=== PATIENT | female | born 1965 | race Caucasian/White ===

== ENCOUNTER 2016-11-22 10:53 | Emergency (ER) | payer OTHER ==
--- NOTE | 2016-11-22 11:57 | DIAGNOSTIC IMAGING REPORT ---
PROCEDURE: XR CHEST 1 VIEW INDICATION: CHEST PAIN TECHNIQUE: Portable AP view 11:30 a.m. COMPARISON: None. FINDINGS: Lungs are clear. Heart and mediastinum are normal. Thorax is normal. IMPRESSION: 1. Negative chest.
--- NOTE | 2016-11-22 12:17 | ED NURSING NOTES ---
Clinical Report - Nurses Formerly [facility] [address] [place] [address] 11/22/2016 10:54 Patient: LEÓN ROSENTHAL TRIAGE Triage time 10:58. Acuity: LEVEL 2. Chief Complaint: CHEST PAIN. 11:04 11/22/16. Alert. No acute distress. SEPSIS SCREEN: Sepsis Screen. Negative (no infection suspected/documented). LOLY COMA SCORE: [place] Coma Scale: 15- eyes open spontaneously (4); best verbal response- oriented x 4 (5); best motor response- obeys commands (6). --11:04 William Roman R.N. 11:00 11/22/16. BP: 129/107. HR: 85. RR: 16. O2 saturation: 100% on room air. Temp: 98.4 F (oral). Pain level now 5/10. --11:04 William Roman R.N. Weight: 74.8 kg stated. Height/Length: 62 inches Per Patient. BMI: 30.2. --11:01 William Roman R.N. Medications Estradiol Oral (Tablet 1 mg), daily. Omeprazole Oral 40 mg, daily. Synthroid Oral 250mcg, daily. Tylenol prn. --11:02 William Roman R.N. Allergies Flexeril. Side-Effect Moderate (restless leg syndrome) --11:02 William Roman R.N. Medication/allergy information source: the patient. --11:04 William Roman R.N. History Arrived by private vehicle. Historian: patient. Primary physician (no pcp). ( chest pain x2 weeks, states it is worse today. States she has also had a cough for the past 2 days.). Onset. (2 weeks ago). Treatment [employer] COUNSELOR: None. PAST MEDICAL HX: Denies current . SOCIAL HX: Heavy tobacco smoker (cigarette)- less than 1 pack per day. No alcohol use or drug use. ABUSE ASSESSMENT: Abuse assessment: The patient was asked "Do you feel safe in your home?". No report of abuse. FALL RISK ASSESSMENT: Fall risk assessment completed. No fall risk identified. NUTRITIONAL RISK ASSESSMENT: The nutritional risk assessment revealed no deficiencies. FUNCTIONAL ASSESSMENT: Functional assessment: no impairments noted. LEARNING NEEDS ASSESSMENT: The learning needs assessment revealed no barriers. SKIN INTEGRITY ASSESSMENT: Skin integrity risk assessment completed. No skin integrity risk identified. --11:04 William Roman R.N. ( states cough is nonproductive). --11:04 William Roman R.N. PROBLEMS: Grave's Disease. Hypothyroidism. --11:02 William Roman R.N. ADDITIONAL SURGERIES: Hysterectomy. --11:02 William Roman R.N. Interventions ID band on patient. To treatment room. --11:04 William Roman R.N. PHYSICAL ASSESSMENT 11:04 11/22/16. Ambulatory to room. GENERAL / NEURO / PSYCH: Alert. Oriented X 4. Appears in no acute distress. HEENT: Mucous membranes are pink. RESPIRATORY: Respirations not labored. CVS: Pulses within normal limits. Capillary refill less than 2 seconds. GI / : Abdomen soft and nontender. EXTREMITIES: No lower extremity edema. SKIN: Skin is warm and dry. Normal skin turgor. --11:04 William Roman R.N. NURSING PROGRESS NOTES 11:11/22/2016 Site #1 started via IV in the right antecubital space with an 20g angiocath, with aseptic technique and good blood return; one attempt. Blood drawn: rainbow set. Labeled in the presence of the patient and sent to the lab. Saline lock flushed with 10 mL saline (by HARMAN Rincon). --11:05 William Roman R.N. 11:11/22/16. The plan of care for this patient has been created. vehicle monitor technician, pulse oximeter and NIBP monitor placed on patient. Patient gowned. Head of bed elevated. Call light placed in reach. Bed placed in lowest position. Brakes of bed on. Patient ready for evaluation- chart flagged. --11:05 William Roman R.N. EKG time: (11:06). EKG was performed by a tech and shown to the ED physician. --11:08 Leonie Vivar 11:07 11/22/2016 Aspirin PO Tablets 325 mg given. Allergies verified and confirmed 5 rights. --11:10 William Roman R.N. Patient ID band checked for patient name and birthdate: patient confirmed. Instructions provided to collect clean catch urine and patient verbalized understanding. Clean catch urine collected with return of yellow-colored clear urine; odor is normal; sample sent to lab for urinalysis and culture. Specimen labeled in the presence of the patient. --11:42 William Roman R.N. DISPOSITION / DISCHARGE 12:39 11/22/2016 Site #1 removed upon discharge. Bandage applied. --12:39 Clayton Hubbard R.N. Departure time: 12:39 Nov 22 2016. --12:39 Clayton Hubbard R.N. 12:38 11/22/16. BP: 136/82. HR: 76. RR: 18. O2 saturation: 99%. Temp: 98.3 F. --12:39 Clayton Hubbard R.N. Condition at departure: improved. No learning barriers present. Discharge instructions provided and reviewed with the patient. Reviewed warnings. Reviewed medication(s). Treatments reviewed. Reviewed referrals. Patient verbalized understanding. Written instructions provided in Turkmen. The patient was discharged by the physician. She was discharged home and accompanied by family. She left the Emergency Department ambulatory and via private vehicle. Patient driving. --12:40 Clayton Hubbard R.N. Locked/Released at 11/23/2016 8:53 by Pavithra Ozuna R.N.
--- NOTE | 2016-11-22 12:17 | ED CLINICAL REPORT ---
Clinical Report - Physicians/Mid Levels [facility] [address] [place] [address] 11/22/2016 10:54 Patient: LEÓN ROSENTHAL Time Seen: 11:00. Arrived- By private vehicle. Historian- patient. HISTORY OF PRESENT ILLNESS Chief Complaint: CHEST PAIN. It is described as pressure, burning, "pain" and well localized and it is described as located in the central chest area. No radiation. This started about 2 weeks ago and is still present. It was gradual in onset. At its maximum, severity described as 5 / 10. When seen in the E.D., severity described as 4 / 10. No nausea, vomiting or diaphoresis. She has had mild difficulty breathing on exertion. REVIEW OF SYSTEMS No fever, chills or pedal edema or edema. No calf pain or pain, chills, fever or sweats. No palpitations. She has had a moderate cough productive of scant amounts of sputum. She has had a cough and mild difficulty breathing. The patient has also had dyspnea on exertion. All systems otherwise negative, except as recorded above. PAST HISTORY PCP - none here. Problems: Grave's Disease. Hypothyroidism. Wound Check. Contusion. Total abd hysterectomy. Additional Surgeries: Hysterectomy. Medications: Estradiol Oral (Tablet 1 mg), daily. Omeprazole Oral 40 mg, daily. Synthroid Oral 250mcg, daily. Tylenol prn. Allergies: Flexeril. Side-Effect Moderate (restless leg syndrome). SOCIAL HISTORY Current every day heavy tobacco smoker (cigarette)- 1 pack per day. No alcohol use or drug use. Residence[place]. FAMILY HISTORY Diabetes in first-degree relative (mother). sister with an uncertain type of lung disease mother with renal failure. ADDITIONAL NOTES The nursing notes have been reviewed. PHYSICAL EXAM Vital Signs: 11/22/2016 11:00 BP: 129/107. HR: 85. RR: 16. O2 saturation: 100%. Temp: 98.4 F. Have been reviewed. Appearance: Alert. No acute distress. Eyes: Pupils equal, round and reactive to light. ENT: Pharynx normal. Neck: Normal inspection. Neck supple. No JVD. CVS: Normal heart rate and rhythm. Heart sounds normal. Respiratory: No respiratory distress. Abdomen: Soft and nontender. Bowel sounds normal. No organomegaly. No mass. Back: Normal external inspection. Skin: Skin warm and dry. Normal skin color. Normal skin turgor. Extremities: Extremities exhibit normal ROM. No calf tenderness. No lower extremity edema. LABS, X-RAYS, AND EKG EKG: No acute process. Rate: 81. Prior EKG unavailable. The study has been independently viewed by me. Chest X-ray: No acute disease. The X-rays were interpreted by the radiologist and contemporaneously by me. Laboratory Tests: UA-Culture if indicated: (TIA: 11/22/2016 11:35) ( MsgRcvd 11/22/2016 11:57) Final results Test Result Flag Units (Reference) URINE COLOR STRAW URINE APPEARANCE CLEAR URINE GLUCOSE NEGATIVE (NEGATIVE) URINE BILIRUBIN NEGATIVE (NEGATIVE) URINE KETONE NEGATIVE (NEGATIVE) URINE SPECIFIC GRAVITY <= 1.005 L (1.010-1.030) URINE PH 6.0 (5.0-8.0) URINE PROTEIN NEGATIVE (NEGATIVE) URINE UROBILINOGEN 0.2 EU/dL (0.2-1.0) URINE NITRITE NEGATIVE (NEGATIVE) URINE BLOOD NEGATIVE (NEGATIVE) URINE LEUK ESTERASE NEGATIVE (NEGATIVE) URINE RBC NONE SEEN rbc/hpf (0-1) URINE WBC 0-1 wbc/hpf (0-1) URINE EPITHELIAL CELLS 3-5 EPI/hpf (0-5) URINE BACTERIA TRACE (<1+) (NONE SEEN) URINE COMMENT CULT NOT INDICATED URINE CULTURES ARE SET-UP BASED ON THE FOLLOWING CRITERIA:POSITIVE NITRITEPOSITIVE LEUKOCYTE ESTERASEGREATER THAN 10 WHITE BLOOD CELLSMODERATE (2+) OR GREATER BACTERIA CBC w Diff: (TIA: 11/22/2016 11:04) ( Mscvd 11/22/2016 11:13) Final results Test Result Flag Units (Reference) WHITE BLOOD COUNT 7.4 K/uL (4.5-11.5) RED BLOOD COUNT 4.52 M/uL (4.00-5.20) HEMOGLOBIN 13.9 gm/dL (12.0-16.0) HEMATOCRIT 42.4 % (36.0-46.0) MEAN CELL VOLUME 94 fL (80-100) MEAN CORPUSCULAR HGB 31 pg (26-34) MEAN CORPUSCULAR HGB CONC 33 g/dL (31-37) RED CELL DISTRIBUTION WIDTH 13.3 % (11.6-14.8) PLATELET COUNT 311 K/uL (150-400) NEUTROPHIL % 67.2 % (50-75) LYMPH % 24.5 L % (25-40) MONO % 6.7 % (3-14) EOSINOPHIL % 1.2 % (0-4) BASOPHIL % 0.4 % (0-2) PT with INR: (TIA: 11/22/2016 11:04) ( [facility] 11[facility]30) Final results Test Result Flag Units (Reference) INR 0.9 (0.8-1.2) Low Intensity Therapy: INR 1.5-2.0 PT range 18.5-23.1Mod.Intensity Therapy: INR 2.0-3.0 PT range 23.1-31.5High Intensity Therapy: INR 2.5-3.5 PT range 27.4-35.5High Intensity Therapy 2: INR 3.0-4.0 PT range 31.5-39.3 APTT 32 SECONDS (24-34) D-DIMER QUANTITATIVE < 0.27 L ug/mLFEU (0.27-0.52) The primary value of this quantitative assay relates toits negative predictive value (i.e. exclusion) of pulmonaryembolism/deep vein thrombosis/DIC.Elevated levels of d-dimer may also occur with:, age, cancer, inflammation, liver disease,post-op, infection, hematoma, coronary disease, peripheralarteriopathy, bleeding disorders and thrombolytic treatment.Results should be correlated with other clinical andradiological data.Testing Methodology: Latex Immunoassay CMP: (TIA: 11/22/2016 11:04) ( MsgRcvd 11/22/2016 11:38) Final results Test Result Flag Units (Reference) GLUCOSE 108 mg/dL (70-110) BUN 19 H mg/dL (7-18) CREATININE 0.9 mg/dL (0.6-1.3) Estimated GFR >60 mL/min Estimated GFR- >60 mL/min Note: Persistent reduction over 3 months in eGFR<60 mL/min/1.73 m2 defines CKD. Patients with eGFR values>=60 mL/min/1.73 m2 may also have CKD if evidence ofpersistent proteinuria. Additional information may be foundat www.kidney.org. SODIUM 139 mmol/L (136-145) POTASSIUM 3.9 mmol/L (3.5-5.1) CHLORIDE 102 mmol/L (98-107) CARBON DIOXIDE 26 mmol/L (21-32) CALCIUM 9.0 mg/dL (8.5-10.1) TOTAL PROTEIN 8.4 H g/dL (6.4-8.2) ALBUMIN 3.9 g/dL (3.3-5.0) BILIRUBIN, TOTAL 0.3 mg/dL (0.0-1.0) ALKALINE PHOSPHATASE 89 U/L (46-116) AST (SGOT) 15 U/L (15-37) ALT (SGPT) 21 U/L (12-78) LIPASE 80 U/L (73-393) AMYLASE 64 U/L (25-115) CPK 77 U/L (24-260) TROPONIN I <0.05 L ng/mL (0.00-1.5) TROPONIN REFERENCE RANGE:<0.1 NEGATIVE0.1-1.5 INDETERMINANT>1.5 POSITIVE . PROGRESS AND PROCEDURES Course of Care: Patient is stable. Patient/family counseled. Old medical records reviewed. Disposition: Discharged. Condition: stable. CLINICAL IMPRESSION Acute bronchitis. Pleurisy. INSTRUCTIONS No driving or operating machinery while taking medication. Do not smoke- benefits of smoking cessation discussed (>3 -10 minutes). Seek medical help to quit smoking. Warnings: Further evaluation is necessary. GENERAL WARNINGS: Return or contact your physician immediately if your condition worsens or changes unexpectedly, if not improving as expected, or if other problems arise. Prescription Medications: Zithromax 250 mg tablets: take 2 orally today, followed by 1 daily for the next 4 days. No refills. Substitution is permissible. Ultram 50 mg: take 1-2 orally every 6 hours as needed for pain. Dispense ten (10). No refills. Substitution is permissible. Understanding of the discharge instructions verbalized by patient. Follow-up with: [facility], , , [address], , [place], [id number] Follow up. Call for the next available appointment. (Electronically signed by Anurag Mccarty MD 11/22/2016 15:29)
--- NOTE | 2016-11-22 12:17 | ED CLINICAL REPORT ---
Clinical Report - Physicians/Mid Levels [facility] [address] [place] [address] 11/22/2016 10:54 Patient: LEÓN ROSENTHAL Time Seen: 11:00. Arrived- By private vehicle. Historian- patient. HISTORY OF PRESENT ILLNESS Chief Complaint: CHEST PAIN. It is described as pressure, burning, "pain" and well localized and it is described as located in the central chest area. No radiation. This started about 2 weeks ago and is still present. It was gradual in onset. At its maximum, severity described as 5 / 10. When seen in the E.D., severity described as 4 / 10. No nausea, vomiting or diaphoresis. She has had mild difficulty breathing on exertion. REVIEW OF SYSTEMS No fever, chills or pedal edema or edema. No calf pain or pain, chills, fever or sweats. No palpitations. She has had a moderate cough productive of scant amounts of sputum. She has had a cough and mild difficulty breathing. The patient has also had dyspnea on exertion. All systems otherwise negative, except as recorded above. PAST HISTORY PCP - none here. Problems: Grave's Disease. Hypothyroidism. Wound Check. Contusion. Total abd hysterectomy. Additional Surgeries: Hysterectomy. Medications: Estradiol Oral (Tablet 1 mg), daily. Omeprazole Oral 40 mg, daily. Synthroid Oral 250mcg, daily. Tylenol prn. Allergies: Flexeril. Side-Effect Moderate (restless leg syndrome). SOCIAL HISTORY Current every day heavy tobacco smoker (cigarette)- 1 pack per day. No alcohol use or drug use. Residence[place]. FAMILY HISTORY Diabetes in first-degree relative (mother). sister with an uncertain type of lung disease mother with renal failure. ADDITIONAL NOTES The nursing notes have been reviewed. PHYSICAL EXAM Vital Signs: 11/22/2016 11:00 BP: 129/107. HR: 85. RR: 16. O2 saturation: 100%. Temp: 98.4 F. Have been reviewed. Appearance: Alert. No acute distress. Eyes: Pupils equal, round and reactive to light. ENT: Pharynx normal. Neck: Normal inspection. Neck supple. No JVD. CVS: Normal heart rate and rhythm. Heart sounds normal. Respiratory: No respiratory distress. Abdomen: Soft and nontender. Bowel sounds normal. No organomegaly. No mass. Back: Normal external inspection. Skin: Skin warm and dry. Normal skin color. Normal skin turgor. Extremities: Extremities exhibit normal ROM. No calf tenderness. No lower extremity edema. LABS, X-RAYS, AND EKG EKG: No acute process. Rate: 81. Prior EKG unavailable. The study has been independently viewed by me. Chest X-ray: No acute disease. The X-rays were interpreted by the radiologist and contemporaneously by me. Laboratory Tests: UA-Culture if indicated: (TIA: 11/22/2016 11:35) ( MsgRcvd 11/22/2016 11:57) Final results Test Result Flag Units (Reference) URINE COLOR STRAW URINE APPEARANCE CLEAR URINE GLUCOSE NEGATIVE (NEGATIVE) URINE BILIRUBIN NEGATIVE (NEGATIVE) URINE KETONE NEGATIVE (NEGATIVE) URINE SPECIFIC GRAVITY <= 1.005 L (1.010-1.030) URINE PH 6.0 (5.0-8.0) URINE PROTEIN NEGATIVE (NEGATIVE) URINE UROBILINOGEN 0.2 EU/dL (0.2-1.0) URINE NITRITE NEGATIVE (NEGATIVE) URINE BLOOD NEGATIVE (NEGATIVE) URINE LEUK ESTERASE NEGATIVE (NEGATIVE) URINE RBC NONE SEEN rbc/hpf (0-1) URINE WBC 0-1 wbc/hpf (0-1) URINE EPITHELIAL CELLS 3-5 EPI/hpf (0-5) URINE BACTERIA TRACE (<1+) (NONE SEEN) URINE COMMENT CULT NOT INDICATED URINE CULTURES ARE SET-UP BASED ON THE FOLLOWING CRITERIA:POSITIVE NITRITEPOSITIVE LEUKOCYTE ESTERASEGREATER THAN 10 WHITE BLOOD CELLSMODERATE (2+) OR GREATER BACTERIA CBC w Diff: (TIA: 11/22/2016 11:04) ( Mscvd 11/22/2016 11:13) Final results Test Result Flag Units (Reference) WHITE BLOOD COUNT 7.4 K/uL (4.5-11.5) RED BLOOD COUNT 4.52 M/uL (4.00-5.20) HEMOGLOBIN 13.9 gm/dL (12.0-16.0) HEMATOCRIT 42.4 % (36.0-46.0) MEAN CELL VOLUME 94 fL (80-100) MEAN CORPUSCULAR HGB 31 pg (26-34) MEAN CORPUSCULAR HGB CONC 33 g/dL (31-37) RED CELL DISTRIBUTION WIDTH 13.3 % (11.6-14.8) PLATELET COUNT 311 K/uL (150-400) NEUTROPHIL % 67.2 % (50-75) LYMPH % 24.5 L % (25-40) MONO % 6.7 % (3-14) EOSINOPHIL % 1.2 % (0-4) BASOPHIL % 0.4 % (0-2) PT with INR: (TIA: 11/22/2016 11:04) ( [facility] 11/22/2016 11[facility]30) Final results Test Result Flag Units (Reference) INR 0.9 (0.8-1.2) Low Intensity Therapy: INR 1.5-2.0 PT range 18.5-23.1Mod.Intensity Therapy: INR 2.0-3.0 PT range 23.1-31.5High Intensity Therapy: INR 2.5-3.5 PT range 27.4-35.5High Intensity Therapy 2: INR 3.0-4.0 PT range 31.5-39.3 APTT 32 SECONDS (24-34) D-DIMER QUANTITATIVE < 0.27 L ug/mLFEU (0.27-0.52) The primary value of this quantitative assay relates toits negative predictive value (i.e. exclusion) of pulmonaryembolism/deep vein thrombosis/DIC.Elevated levels of d-dimer may also occur with:, age, cancer, inflammation, liver disease,post-op, infection, hematoma, coronary disease, peripheralarteriopathy, bleeding disorders and thrombolytic treatment.Results should be correlated with other clinical andradiological data.Testing Methodology: Latex Immunoassay CMP: (TIA: 11/22/2016 11:04) ( MsgRcvd 11/22/2016 11:38) Final results Test Result Flag Units (Reference) GLUCOSE 108 mg/dL (70-110) BUN 19 H mg/dL (7-18) CREATININE 0.9 mg/dL (0.6-1.3) Estimated GFR >60 mL/min Estimated GFR- >60 mL/min Note: Persistent reduction over 3 months in eGFR<60 mL/min/1.73 m2 defines CKD. Patients with eGFR values>=60 mL/min/1.73 m2 may also have CKD if evidence ofpersistent proteinuria. Additional information may be foundat www.kidney.org. SODIUM 139 mmol/L (136-145) POTASSIUM 3.9 mmol/L (3.5-5.1) CHLORIDE 102 mmol/L (98-107) CARBON DIOXIDE 26 mmol/L (21-32) CALCIUM 9.0 mg/dL (8.5-10.1) TOTAL PROTEIN 8.4 H g/dL (6.4-8.2) ALBUMIN 3.9 g/dL (3.3-5.0) BILIRUBIN, TOTAL 0.3 mg/dL (0.0-1.0) ALKALINE PHOSPHATASE 89 U/L (46-116) AST (SGOT) 15 U/L (15-37) ALT (SGPT) 21 U/L (12-78) LIPASE 80 U/L (73-393) AMYLASE 64 U/L (25-115) CPK 77 U/L (24-260) TROPONIN I <0.05 L ng/mL (0.00-1.5) TROPONIN REFERENCE RANGE:<0.1 NEGATIVE0.1-1.5 INDETERMINANT>1.5 POSITIVE . PROGRESS AND PROCEDURES Course of Care: Patient is stable. Patient/family counseled. Old medical records reviewed. Disposition: Discharged. Condition: stable. CLINICAL IMPRESSION Acute bronchitis. Pleurisy. INSTRUCTIONS No driving or operating machinery while taking medication. Do not smoke- benefits of smoking cessation discussed (>3 -10 minutes). Seek medical help to quit smoking. Warnings: Further evaluation is necessary. GENERAL WARNINGS: Return or contact your physician immediately if your condition worsens or changes unexpectedly, if not improving as expected, or if other problems arise. Prescription Medications: Zithromax 250 mg tablets: take 2 orally today, followed by 1 daily for the next 4 days. No refills. Substitution is permissible. Ultram 50 mg: take 1-2 orally every 6 hours as needed for pain. Dispense ten (10). No refills. Substitution is permissible. Understanding of the discharge instructions verbalized by patient. Follow-up with: [facility], , , [address], , [place], [id number] Follow up. Call for the next available appointment. (Electronically signed by Anurag Mccarty MD 11/22/2016 15:29)
--- NOTE | 2016-11-22 12:17 | ED ORDER SUMMARY ---
..... Patient: LEÓN ROSENTHAL OrderSheet [facility]ly [facility] VisitID: [id number] [address] [place] [address] 51y, F Registration Date/Time: 11/22/2016 ORDER SHEET Weight: 74.8 kg (stated) Allergies: Flexeril GENERAL ORDERS: Sld Teacher (Continuous) (11:11/22/2016 Berhane TY) (11:05 KWilliams R.N.) Chest 1V Urgent (11:11/22/2016 Berhane TY) (Ack 11:10 Sobia) (11:32 KWilliams R.N.) CBC w Diff Urgent (11:11/22/2016 Berhane TY) (11:10 KWilliams R.N.) (Ack 11:10 Sobia) CMP Urgent (11:11/22/2016 Berhane TY) (11:10 KWilliams R.N.) (Ack 11:10 Sobia) UA-Culture if indicated Urgent (11:11/22/2016 Berhane TY) (Ack 11:10 Sobia) (11:38 KWilliams R.N.) PT with INR Urgent (11:11/22/2016 Berhane TY) (11:10 KWilliams R.N.) (Ack 11:10 Sobia) PTT Urgent (11:11/22/2016 Berhane TY) (11:10 KWilliams R.N.) (Ack 11:10 Sobia) Amylase Urgent (11:11/22/2016 Berhane TY) (11:10 KWilliams R.N.) (Ack 11:10 Sobia) Lipase Urgent (11:11/22/2016 Berhane TY) (11:10 CHOLOilliams R.N.) (Ack 11:10 Sobia) CPK Urgent (11:11/22/2016 Berhane TY) (11:10 KWilliams R.N.) (Ack 11:10 Sobia) Troponin-I Urgent (11:11/22/2016 Berhane TY) (11:10 KWilliams R.N.) (Ack 11:10 Sobia) D-Dimer Urgent (11:11/22/2016 Berhane TY) (11:10 Marie R.N.) (Ack 11:10 Sobia) Oxygen (2 L/min) (NC) (11:11/22/2016 Berhane TY) (11:05 Marie R.N.) Pulse oximeter (11:11/22/2016 Berhane TY) (11:10 Marie R.N.) EKG - ER Stat (11:11/22/2016 Berhane TY) (11:07 Sobia) (11:10 Marie R.N.) MEDICATION ORDERS: Aspirin PO 325 mg (NOW) (11:11/22/2016 Berhane TY) (11:10 Marie R.N.) IV FLUIDS: IV Saline Lock (11:11/22/2016 Berhane TY) (11:05 Marie R.N.) ORDER SHEET NOTES: [Electronically signed by Anurag Mccarty MD (15:29 11/22/2016)] [Electronically signed by Pavithra Ozuna R.N. (08:53 11/23/2016)] [Electronically locked/signed by Pavithra Ozuna R.N. (08:53 11/23/2016)]
--- NOTE | 2016-11-22 12:17 | ED ORDER SUMMARY ---
..... Patient: LEÓN ROSENTHAL OrderSheet [facility] VisitID: [id number] [address] [place] [address] 51y, F Registration Date/Time: 11/22/2016 ORDER SHEET Weight: 74.8 kg (stated) Allergies: Flexeril GENERAL ORDERS: Administrative Assistant Front Desk (Continuous) (11:11/22/2016 Berhane TY) (11:05 KWilliams R.N.) Chest 1V Urgent (11:11/22/2016 Berhane TY) (Ack 11:10 Sobia) (11:32 KWilliams R.N.) CBC w Diff Urgent (11:11/22/2016 Berhane TY) (11:10 KWilliams R.N.) (Ack 11:10 Sobia) CMP Urgent (11:11/22/2016 Berhane YT) (11:10 KWilliams R.N.) (Ack 11:10 Sobia) UA-Culture if indicated Urgent (11:11/22/2016 Berhane TY) (Ack 11:10 Sobia) (11:38 KWilliams R.N.) PT with INR Urgent (11:11/22/2016 Berhane TY) (11:10 KWilliams R.N.) (Ack 11:10 Sobia) PTT Urgent (11:11/22/2016 Berhane TY) (11:10 KWilliams R.N.) (Ack 11:10 Sobia) Amylase Urgent (11:11/22/2016 Berhane TY) (11:10 KWilliams R.N.) (Ack 11:10 Sobia) Lipase Urgent (11:11/22/2016 Berhane TY) (11:10 CHOLOilliams R.N.) (Ack 11:10 Sobia) CPK Urgent (11:11/22/2016 Berhane TY) (11:10 KWilliams R.N.) (Ack 11:10 Sobia) Troponin-I Urgent (11:11/22/2016 Berhane TY) (11:10 KWilliams R.N.) (Ack 11:10 Sobia) D-Dimer Urgent (11:11/22/2016 Berhane TY) (11:10 Marie R.N.) (Ack 11:10 Sobia) Oxygen (2 L/min) (NC) (11:11/22/2016 Berhane TY) (11:05 Marie R.N.) Pulse oximeter (11:11/22/2016 Berhane TY) (11:10 Marie R.N.) EKG - ER Stat (11:11/22/2016 Berhane TY) (11:07 Sobia) (11:10 Marie R.N.) MEDICATION ORDERS: Aspirin PO 325 mg (NOW) (11:11/22/2016 Berhane TY) (11:10 Marie R.N.) IV FLUIDS: IV Saline Lock (11:11/22/2016 Berhane TY) (11:05 Marie R.N.) ORDER SHEET NOTES: [Electronically signed by Anurag Mccarty MD (15:29 11/22/2016)] [Electronically signed by Pavithra Ozuna R.N. (08:53 11/23/2016)] [Electronically locked/signed by Pavithra Ozuna R.N. (08:53 11/23/2016)]
--- NOTE | 2016-11-22 12:17 | ED NURSING NOTES ---
Clinical Report - Nurses [facility] [address] [address] 11/22/2016 10:54 Patient: LEÓN ROSENTHAL TRIAGE Triage time 10:58. Acuity: LEVEL 2. Chief Complaint: CHEST PAIN. 11:04 11/22/16. Alert. No acute distress. SEPSIS SCREEN: Sepsis Screen. Negative (no infection suspected/documented). LOLY COMA SCORE: [place] Coma Scale: 15- eyes open spontaneously (4); best verbal response- oriented x 4 (5); best motor response- obeys commands (6). --11:04 William Roman R.N. 11:00 11/22/16. BP: 129/107. HR: 85. RR: 16. O2 saturation: 100% on room air. Temp: 98.4 F (oral). Pain level now 5/10. --11:04 William Roman R.N. Weight: 74.8 kg stated. Height/Length: 62 inches Per Patient. BMI: 30.2. --11:01 William Roman R.N. Medications Estradiol Oral (Tablet 1 mg), daily. Omeprazole Oral 40 mg, daily. Synthroid Oral 250mcg, daily. Tylenol prn. --11:02 William Roman R.N. Allergies Flexeril. Side-Effect Moderate (restless leg syndrome) --11:02 William Roman R.N. Medication/allergy information source: the patient. --11:04 William Roman R.N. History Arrived by private vehicle. Historian: patient. Primary physician (no pcp). ( chest pain x2 weeks, states it is worse today. States she has also had a cough for the past 2 days.). Onset. (2 weeks ago). Treatment H[employer] ASSISTANT PRINCIPAL: None. PAST MEDICAL HX: Denies current . SOCIAL HX: Heavy tobacco smoker (cigarette)- less than 1 pack per day. No alcohol use or drug use. ABUSE ASSESSMENT: Abuse assessment: The patient was asked "Do you feel safe in your home?". No report of abuse. FALL RISK ASSESSMENT: Fall risk assessment completed. No fall risk identified. NUTRITIONAL RISK ASSESSMENT: The nutritional risk assessment revealed no deficiencies. FUNCTIONAL ASSESSMENT: Functional assessment: no impairments noted. LEARNING NEEDS ASSESSMENT: The learning needs assessment revealed no barriers. SKIN INTEGRITY ASSESSMENT: Skin integrity risk assessment completed. No skin integrity risk identified. --11:04 William Roman R.N. ( states cough is nonproductive). --11:04 William Roman R.N. PROBLEMS: Grave's Disease. Hypothyroidism. --11:02 William Roman R.N. ADDITIONAL SURGERIES: Hysterectomy. --11:02 William Roman R.N. Interventions ID band on patient. To treatment room. --11:04 William Roman R.N. PHYSICAL ASSESSMENT 11:04 11/22/16. Ambulatory to room. GENERAL / NEURO / PSYCH: Alert. Oriented X 4. Appears in no acute distress. HEENT: Mucous membranes are pink. RESPIRATORY: Respirations not labored. CVS: Pulses within normal limits. Capillary refill less than 2 seconds. GI / : Abdomen soft and nontender. EXTREMITIES: No lower extremity edema. SKIN: Skin is warm and dry. Normal skin turgor. --11:04 William Roman R.N. NURSING PROGRESS NOTES 11:11/22/2016 Site #1 started via IV in the right antecubital space with an 20g angiocath, with aseptic technique and good blood return; one attempt. Blood drawn: rainbow set. Labeled in the presence of the patient and sent to the lab. Saline lock flushed with 10 mL saline (by HARMAN Rincon). --11:05 William Roman R.N. 11:11/22/16. The plan of care for this patient has been created. monitoring analyst, pulse oximeter and NIBP monitor placed on patient. Patient gowned. Head of bed elevated. Call light placed in reach. Bed placed in lowest position. Brakes of bed on. Patient ready for evaluation- chart flagged. --11:05 William Roman R.N. EKG time: (11:06). EKG was performed by a tech and shown to the ED physician. --11:08 Leonie Vivar 11:07 11/22/2016 Aspirin PO Tablets 325 mg given. Allergies verified and confirmed 5 rights. --11:10 William Roman R.N. Patient ID band checked for patient name and birthdate: patient confirmed. Instructions provided to collect clean catch urine and patient verbalized understanding. Clean catch urine collected with return of yellow-colored clear urine; odor is normal; sample sent to lab for urinalysis and culture. Specimen labeled in the presence of the patient. --11:42 William Roman R.N. DISPOSITION / DISCHARGE 12:39 11/22/2016 Site #1 removed upon discharge. Bandage applied. --12:39 Clayton Hubbard R.N. Departure time: 12:39 Nov 22 2016. --12:39 Clayton Hubbard R.N. 12:38 11/22/16. BP: 136/82. HR: 76. RR: 18. O2 saturation: 99%. Temp: 98.3 F. --12:39 Clayton Hubbard R.N. Condition at departure: improved. No learning barriers present. Discharge instructions provided and reviewed with the patient. Reviewed warnings. Reviewed medication(s). Treatments reviewed. Reviewed referrals. Patient verbalized understanding. Written instructions provided in Turkmen. The patient was discharged by the physician. She was discharged home and accompanied by family. She left the Emergency Department ambulatory and via private vehicle. Patient driving. --12:40 Clayton Hubbard R.N. Locked/Released at 11/23/2016 8:53 by Pavithra Ozuna R.N.
--- NOTE | 2016-11-23 08:53 | ED MED RECONCILIATION SUMMARY ---
Patient: LEÓN ROSENTHAL Medication Reconciliation Report [facility] VisitID: [id number] [address] [place] [address] 51y, F Registration Date/Time: 11/22/2016 Weight: 74.8 kg Height/Length: 62 in. BMI: 30.2 ALLERGIES: Flexeril The patient's Home Medications are listed below: THE FOLLOWING MEDICATIONS NEED TO BE RECONCILED: Estradiol Oral (1 mg), daily Omeprazole Oral 40 mg, daily Synthroid Oral 250mcg, daily Tylenol prn The source(s) of the original Home Medication information: patient The following Medications were given to the patient in the Emergency Department: Aspirin [PO] PO 325 mg, administered: 11/22/2016 11:07:00 AM The following Medications were prescribed to the patient: Zithromax 250 mg tablets: take 2 orally today, followed by 1 daily for the next 4 days. No refills. Substitution is permissible. -- Anurag Mccarty MD Ultram 50 mg: take 1-2 orally every 6 hours as needed for pain. Dispense ten (10). No refills. Substitution is permissible. -- Anurag Mccarty MD
--- NOTE | 2016-11-23 08:53 | ED MAR SUMMARY ---
..... Medication Administration Record [facility] [address] [address] Patient: LEÓN ROSENTHAL Visit ID: [id number] 51y, F Weight: 74.8 kg Height/Length: 62 in BMI: 30.2 ALLERGIES: Flexeril Given 11:07 11/22/2016 William Roman R.N. Medication Administered: ASPIRIN [PO], Dose: 325 mg Tablets PO. Medication Ordered: Aspirin PO 325 mg (NOW).
--- NOTE | 2016-11-23 08:53 | ED MAR SUMMARY ---
..... Medication Administration Record [facility] [address] [place] [address] Patient: LEÓN ROSENTHAL Visit ID: [id number] 51y, F Weight: 74.8 kg Height/Length: 62 in BMI: 30.2 ALLERGIES: Flexeril Given 11:07 11/22/2016 William Roman R.N. Medication Administered: ASPIRIN [PO], Dose: 325 mg Tablets PO. Medication Ordered: Aspirin PO 325 mg (NOW).
--- NOTE | 2016-11-23 08:53 | ED DISCHARGE INSTRUCTIONS ---
Patient: LEÓN ROSENTHAL General Instructions [facility] VisitID: [id number] [address] [place] [address] 51y, F Registration Date/Time: 11/22/2016 Acute bronchitis. Pleurisy. INSTRUCTIONS No driving or operating machinery while taking medication. Do not smoke- benefits of smoking cessation discussed (>3 -10 minutes). Seek medical help to quit smoking. Warnings: Further evaluation is necessary. GENERAL WARNINGS: Return or contact your physician immediately if your condition worsens or changes unexpectedly, if not improving as expected, or if other problems arise. Prescription Medications: Zithromax 250 mg tablets: take 2 orally today, followed by 1 daily for the next 4 days. No refills. Substitution is permissible. Ultram 50 mg: take 1-2 orally every 6 hours as needed for pain. Dispense ten (10). No refills. Substitution is permissible. Understanding of the discharge instructions verbalized by patient. Follow-up with: [facility], , , [address], [facility], [id number] Follow up. Call for the next available appointment. ADDITIONAL INFORMATION Bronchitis (Adult: Abx Tx) BRONCHITIS is an infection of the air passages (bronchial tubes). It often occurs during the common cold. Symptoms include cough with mucus (phlegm) and low-grade fever. Bronchitis usually lasts 7-14 days. Mild cases can be treated with simple home remedies. More severe infection is treated with an antibiotic. Home Care: If symptoms are severe, rest at home for the first 2-3 days. When you resume activity, don't let yourself get too tired. Do not smoke. Avoid being exposed to the smoke of others. You may use acetaminophen (Tylenol) or ibuprofen (Motrin, Advil) to control fever or pain, unless another medicine was prescribed for this. [NOTE: If you have chronic liver or kidney disease or ever had a stomach ulcer or GI bleeding, talk with your doctor before using these medicines.] Your appetite may be poor, so a light diet is fine. Avoid dehydration by drinking 6-8 glasses of fluids per day (water, soft, drinks, juices, tea, soup, etc.). Extra fluids will help loosen secretions in the lungs. Hxsb-yap-scyopkr cough medicines that containdextromethorphan(such as Robitussin DM) and decongestants (Actifed or Sudafed) may help relieve cough and congestion. [NOTE: Do not use decongestants if you have high blood pressure.] Finish all antibiotic medicine, even if you are feeling better after only a few days. Follow Up with your doctor or as directed if you dont start to feel better after three days. [NOTE: If you are age 65 or older, or if you have chronic asthma or COPD, we recommend a PNEUMOCOCCAL VACCINATION every five years and a yearly INFLUENZAVACCINATION (FLU-SHOT) every . Ask your doctor about this. If you had an X-ray, a radiologist will review it. You will be notified of any new findings that may affect your care.] Get Prompt Medical Attention if any of the following occur: Fever over 100.4F (38.0C) for more than three days Trouble breathing, wheezing or pain with breathing Coughing up blood or increased amounts of colored sputum Weakness, drowsiness, headache, facial pain, ear pain or a stiff neck Pleurisy If you have pleurisy, the lining around your lungs is inflamed. It is most often due to a viral infection or pneumonia. It usually lasts for 1014 days. It may cause sharp pain with breathing, coughing, sneezing and movement. Antibiotics are usually not prescribed for this condition unless pneumonia is also present. Home care The following will help you care for your condition at home: If symptoms are severe, rest at home for the first 23 days. Avoid being exposed to cigarette smoke (yours or that of others). You may use acetaminophen or ibuprofen to control pain, unless another pain medicine was prescribed. If you have chronic liver or kidney disease or ever had a stomach ulcer or GI bleeding, talk with your doctor before using these medicines. Follow-up care Follow up with your doctor or as advised if you do not improve over the next week. When to seek medical care Get prompt medical attention if any of the following occur: Increasing shortness of breath Increase in chest pain, or pain spreads to the neck, arm or back Fever over 100.4F (38.0C) for more than three days Coughing up lots of colored sputum (mucus) or blood Redness, pain or swelling of the leg How To Quit Smoking Smoking is one of the hardest habits to break. About half of all those who have ever smoked have been able to quit, and most of those (about 70%) who still smoke want to quit. Here are some of the best ways to stop smoking. Keep Trying: It takes most smokers about 8 tries before they are finally able to fully quit. So, the more often you try and fail, the better your chance of quitting the next time! So, don't give up! Go Cold [place]: Most ex-smokers quit cold turkey. Trying to cut back gradually doesn't seem to work as well, perhaps because it continues the smoking habit. Also, it is possible to fool yourself by inhaling more while smoking fewer cigarettes. This results in the same amount of nicotine in your body! Get Support: Support programs can make an important difference, especially for the heavy smoker. These groups offer lectures, methods to change your behavior and peer support. Call the free national Quitline for more information. 132-VLNJ-PYV (074-779-6067). Low-cost or free programs are offered by many hospitals, local chapters of the [employer] [employer] (044-727-5750) and the [employer] (854-503-4307). Support at home is important too. Non-smokers can help by offering praise and encouragement. If the smoker fails to quit, encourage them to try again! Bfxh-Yky-Uliqdkv Medicines: For those who can't quit on their own, Nicotine Replacement Therapy (NRT) may make quitting much easier. Certain aids such as the nicotine patch, gum and lozenge are available without a prescription. However, it is best to use these under the guidance of your doctor. The skin patch provides a steady supply of nicotine to the body. Nicotine gum and lozenge gives temporary bursts of low levels of nicotine. Both methods take the edge off the craving for cigarettes. WARNING: If you feel symptoms of nicotine overdose, such as nausea, vomiting, dizziness, weakness, or fast heartbeat, stop using these and see your doctor. Prescription Medicines: After evaluating your smoking patterns and prior attempts at quitting, your doctor may offer a prescription medicine such as bupropion (Zyban, Wellbutrin), varenicline (Chantix, Champix), a niocotine inhaler or nasal spray. Each has its unique advantage and side effects which your doctor can review with you. Health Benefits Of Quitting: The benefits of quitting start right away and keep improving the longer you go without smokin minutes: blood pressure and pulse return to normal 8 hours: oxygen levels return to normal 2 days: ability to smell and taste begins to improve as damaged nerves start to regrow 2-3 weeks: circulation and lung function improves 1-9 months: decreased cough, congestion and shortness of breath; less tired 1 year: risk of heart attack decreases by half 5 years: risk of lung cancer decreases by half; risk of stroke becomes the same as a non-smoker For information about how to quit smoking, visit the following links: National Cancer [place] , Clearing the Air, Quit Smoking Today - an online booklet. http://www.smokefree.gov/pubs/clearing_the_air.pdf Smokefree.gov http://smokefree.gov/ QuitNet http://www.WorkMeInnet.com/ Azithromycin Oral tablet What is this medicine? AZITHROMYCIN (az ith grazyna MYE sin) is a macrolide antibiotic. It is used to treat or prevent certain kinds of bacterial infections. It will not work for colds, flu, or other viral infections. How should I use this medicine? Take this medicine by mouth with a full glass of water. Follow the directions on the prescription label. The tablets can be taken with food or on an empty stomach. If the medicine upsets your stomach, take it with food. Take your medicine at regular intervals. Do not take your medicine more often than directed. Take all of your medicine as directed even if you think your are better. Do not skip doses or stop your medicine early. Talk to your verifier operator regarding the use of this medicine in children. Special care may be needed. What side effects may I notice from receiving this medicine? Side effects that you should report to your doctor or health home care nurse as soon as possible: allergic reactions like skin rash, itching or hives, swelling of the face, lips, or tongue confusion, nightmares or hallucinations dark urine difficulty breathing hearing loss irregular heartbeat or chest pain pain or difficulty passing urine redness, blistering, peeling or loosening of the skin, including inside the mouth white patches or sores in the mouth yellowing of the eyes or skin Side effects that usually do not require medical attention (report to your doctor or health home care nurse if they continue or are bothersome): diarrhea dizziness, drowsiness headache stomach upset or vomiting tooth discoloration vaginal irritation What may interact with this medicine? Do not take this medicine with any of the following medications: lincomycin This medicine may also interact with the following medications: amiodarone antacids cyclosporine digoxin magnesium nelfinavir phenytoin warfarin What if I miss a dose? If you miss a dose, take it as soon as you can. If it is almost time for your next dose, take only that dose. Do not take double or extra doses. Where should I keep my medicine? Keep out of the reach of children. Store at room temperature between 15 and 30 degrees C (59 and 86 degrees F). Throw away any unused medicine after the expiration date. What should I tell my health care provider before I take this medicine? They need to know if you have any of these conditions: kidney disease liver disease irregular heartbeat or heart disease an unusual or allergic reaction to azithromycin, erythromycin, other macrolide antibiotics, foods, dyes, or preservatives or trying to get breast-feeding What should I watch for while using this medicine? Tell your doctor or health home care nurse if your symptoms do not improve. Do not treat diarrhea with over the counter products. Contact your doctor if you have diarrhea that lasts more than 2 days or if it is severe and watery. This medicine can make you more sensitive to the sun. Keep out of the sun. If you cannot avoid being in the sun, wear protective clothing and use sunscreen. Do not use sun lamps or tanning beds/booths. Tramadol Hydrochloride Oral tablet What is this medicine? TRAMADOL (TRA ma dole) is a pain reliever. It is used to treat moderate to severe pain in adults. How should I use this medicine? Take this medicine by mouth with a full glass of water. Follow the directions on the prescription label. If the medicine upsets your stomach, take it with food or milk. Do not take more medicine than you are told to take. Talk to your verifier operator regarding the use of this medicine in children. Special care may be needed. What side effects may I notice from receiving this medicine? Side effects that you should report to your doctor or health home care nurse as soon as possible: allergic reactions like skin rash, itching or hives, swelling of the face, lips, or tongue breathing difficulties, wheezing confusion itching light headedness or fainting spells redness, blistering, peeling or loosening of the skin, including inside the mouth seizures Side effects that usually do not require medical attention (report to your doctor or health home care nurse if they continue or are bothersome): constipation dizziness drowsiness headache nausea, vomiting What may interact with this medicine? Do not take this medicine with any of the following medications: MAOIs like Carbex, Eldepryl, Marplan, Nardil, and Parnate This medicine may also interact with the following medications: alcohol or medicines that contain alcohol antihistamines benzodiazepines bupropion carbamazepine or oxcarbazepine clozapine cyclobenzaprine digoxin furazolidone linezolid medicines for depression, anxiety, or psychotic disturbances medicines for migraine headache like almotriptan, eletriptan, frovatriptan, naratriptan, rizatriptan, sumatriptan, zolmitriptan medicines for pain like pentazocine, buprenorphine, butorphanol, meperidine, nalbuphine, and propoxyphene medicines for sleep muscle relaxants naltrexone phenobarbital phenothiazines like perphenazine, thioridazine, chlorpromazine, mesoridazine, fluphenazine, prochlorperazine, promazine, and trifluoperazine procarbazine warfarin What if I miss a dose? If you miss a dose, take it as soon as you can. If it is almost time for your next dose, take only that dose. Do not take double or extra doses. Where should I keep my medicine? Keep out of the reach of children. Store at room temperature between 15 and 30 degrees C (59 and 86 degrees F). Keep container tightly closed. Throw away any unused medicine after the expiration date. What should I tell my health care provider before I take this medicine? They need to know if you have any of these conditions: brain tumor depression drug abuse or addiction head injury if you frequently drink alcohol containing drinks kidney disease or trouble passing urine liver disease lung disease, asthma, or breathing problems seizures or epilepsy suicidal thoughts, plans, or attempt; a previous suicide attempt by you or a family member an unusual or allergic reaction to tramadol, codeine, other medicines, foods, dyes, or preservatives or trying to get breast-feeding What should I watch for while using this medicine? Tell your doctor or health home care nurse if your pain does not go away, if it gets worse, or if you have new or a different type of pain. You may develop tolerance to the medicine. Tolerance means that you will need a higher dose of the medicine for pain relief. Tolerance is normal and is expected if you take this medicine for a long time. Do not suddenly stop taking your medicine because you may develop a severe reaction. Your body becomes used to the medicine. This does NOT mean you are addicted. Addiction is a behavior related to getting and using a drug for a non-medical reason. If you have pain, you have a medical reason to take pain medicine. Your doctor will tell you how much medicine to take. If your doctor wants you to stop the medicine, the dose will be slowly lowered over time to avoid any side effects. You may get drowsy or dizzy. Do not drive, use machinery, or do anything that needs mental alertness until you know how this medicine affects you. Do not stand or sit up quickly, especially if you are an older patient. This reduces the risk of dizzy or fainting spells. Alcohol can increase or decrease the effects of this medicine. Avoid alcoholic drinks. You may have constipation. Try to have a bowel movement at least every 2 to 3 days. If you do not have a bowel movement for 3 days, call your doctor or health home care nurse. Your mouth may get dry. Chewing sugarless gum or sucking hard candy, and drinking plenty of water may help. Contact your doctor if the problem does not go away or is severe. You have been given the following additional information: Bronchitis, Antiobiotic Treatment (Adult) Pleurisy Smoking Cessation Azithromycin Oral tablet Tramadol Hydrochloride Oral tablet No driving or operating machinery while taking medication. (Electronically signed by Anurag Mccarty MD 11/22/2016 15:29)
--- NOTE | 2016-11-23 08:53 | ED MED RECONCILIATION SUMMARY ---
Patient: LEÓN ROSENTHAL Medication Reconciliation Report [facility] VisitID: [id number] [address] [place] [address] 51y, F Registration Date/Time: 11/22/2016 Weight: 74.8 kg Height/Length: 62 in. BMI: 30.2 ALLERGIES: Flexeril The patient's Home Medications are listed below: THE FOLLOWING MEDICATIONS NEED TO BE RECONCILED: Estradiol Oral (1 mg), daily Omeprazole Oral 40 mg, daily Synthroid Oral 250mcg, daily Tylenol prn The source(s) of the original Home Medication information: patient The following Medications were given to the patient in the Emergency Department: Aspirin [PO] PO 325 mg, administered: 11/22/2016 11:07:00 AM The following Medications were prescribed to the patient: Zithromax 250 mg tablets: take 2 orally today, followed by 1 daily for the next 4 days. No refills. Substitution is permissible. -- Anurag Mccarty MD Ultram 50 mg: take 1-2 orally every 6 hours as needed for pain. Dispense ten (10). No refills. Substitution is permissible. -- Anurag Mccarty MD
--- NOTE | 2016-11-23 08:53 | ED DISCHARGE INSTRUCTIONS ---
Patient: LEÓN ROSENTHAL [facility] VisitID: [id number] [address] [place] [address] 51y, F Registration Date/Time: 11/22/2016 Acute bronchitis. Pleurisy. INSTRUCTIONS No driving or operating machinery while taking medication. Do not smoke- benefits of smoking cessation discussed (>3 -10 minutes). Seek medical help to quit smoking. Warnings: Further evaluation is necessary. GENERAL WARNINGS: Return or contact your physician immediately if your condition worsens or changes unexpectedly, if not improving as expected, or if other problems arise. Prescription Medications: Zithromax 250 mg tablets: take 2 orally today, followed by 1 daily for the next 4 days. No refills. Substitution is permissible. Ultram 50 mg: take 1-2 orally every 6 hours as needed for pain. Dispense ten (10). No refills. Substitution is permissible. Understanding of the discharge instructions verbalized by patient. Follow-up with: [facility], , , [address], [facility], [id number] Follow up. Call for the next available appointment. ADDITIONAL INFORMATION Bronchitis (Adult: Abx Tx) BRONCHITIS is an infection of the air passages (bronchial tubes). It often occurs during the common cold. Symptoms include cough with mucus (phlegm) and low-grade fever. Bronchitis usually lasts 7-14 days. Mild cases can be treated with simple home remedies. More severe infection is treated with an antibiotic. Home Care: If symptoms are severe, rest at home for the first 2-3 days. When you resume activity, don't let yourself get too tired. Do not smoke. Avoid being exposed to the smoke of others. You may use acetaminophen (Tylenol) or ibuprofen (Motrin, Advil) to control fever or pain, unless another medicine was prescribed for this. [NOTE: If you have chronic liver or kidney disease or ever had a stomach ulcer or GI bleeding, talk with your doctor before using these medicines.] Your appetite may be poor, so a light diet is fine. Avoid dehydration by drinking 6-8 glasses of fluids per day (water, soft, drinks, juices, tea, soup, etc.). Extra fluids will help loosen secretions in the lungs. Cizg-zbw-sdhdrwh cough medicines that containdextromethorphan(such as Robitussin DM) and decongestants (Actifed or Sudafed) may help relieve cough and congestion. [NOTE: Do not use decongestants if you have high blood pressure.] Finish all antibiotic medicine, even if you are feeling better after only a few days. Follow Up with your doctor or as directed if you dont start to feel better after three days. [NOTE: If you are age 65 or older, or if you have chronic asthma or COPD, we recommend a PNEUMOCOCCAL VACCINATION every five years and a yearly INFLUENZAVACCINATION (FLU-SHOT) every . Ask your doctor about this. If you had an X-ray, a radiologist will review it. You will be notified of any new findings that may affect your care.] Get Prompt Medical Attention if any of the following occur: Fever over 100.4F (38.0C) for more than three days Trouble breathing, wheezing or pain with breathing Coughing up blood or increased amounts of colored sputum Weakness, drowsiness, headache, facial pain, ear pain or a stiff neck Pleurisy If you have pleurisy, the lining around your lungs is inflamed. It is most often due to a viral infection or pneumonia. It usually lasts for 1014 days. It may cause sharp pain with breathing, coughing, sneezing and movement. Antibiotics are usually not prescribed for this condition unless pneumonia is also present. Home care The following will help you care for your condition at home: If symptoms are severe, rest at home for the first 23 days. Avoid being exposed to cigarette smoke (yours or that of others). You may use acetaminophen or ibuprofen to control pain, unless another pain medicine was prescribed. If you have chronic liver or kidney disease or ever had a stomach ulcer or GI bleeding, talk with your doctor before using these medicines. Follow-up care Follow up with your doctor or as advised if you do not improve over the next week. When to seek medical care Get prompt medical attention if any of the following occur: Increasing shortness of breath Increase in chest pain, or pain spreads to the neck, arm or back Fever over 100.4F (38.0C) for more than three days Coughing up lots of colored sputum (mucus) or blood Redness, pain or swelling of the leg How To Quit Smoking Smoking is one of the hardest habits to break. About half of all those who have ever smoked have been able to quit, and most of those (about 70%) who still smoke want to quit. Here are some of the best ways to stop smoking. Keep Trying: It takes most smokers about 8 tries before they are finally able to fully quit. So, the more often you try and fail, the better your chance of quitting the next time! So, don't give up! Go Cold [place]: Most ex-smokers quit cold turkey. Trying to cut back gradually doesn't seem to work as well, perhaps because it continues the smoking habit. Also, it is possible to fool yourself by inhaling more while smoking fewer cigarettes. This results in the same amount of nicotine in your body! Get Support: Support programs can make an important difference, especially for the heavy smoker. These groups offer lectures, methods to change your behavior and peer support. Call the free national Quitline for more information. 899-GRMM-KJF (050-708-9664). Low-cost or free programs are offered by many hospitals, local chapters of the [place] [employer] (502-299-1314) and the [employer] (428-367-6250). Support at home is important too. Non-smokers can help by offering praise and encouragement. If the smoker fails to quit, encourage them to try again! Ttjr-Hli-Qdzpgys Medicines: For those who can't quit on their own, Nicotine Replacement Therapy (NRT) may make quitting much easier. Certain aids such as the nicotine patch, gum and lozenge are available without a prescription. However, it is best to use these under the guidance of your doctor. The skin patch provides a steady supply of nicotine to the body. Nicotine gum and lozenge gives temporary bursts of low levels of nicotine. Both methods take the edge off the craving for cigarettes. WARNING: If you feel symptoms of nicotine overdose, such as nausea, vomiting, dizziness, weakness, or fast heartbeat, stop using these and see your doctor. Prescription Medicines: After evaluating your smoking patterns and prior attempts at quitting, your doctor may offer a prescription medicine such as bupropion (Zyban, Wellbutrin), varenicline (Chantix, Champix), a niocotine inhaler or nasal spray. Each has its unique advantage and side effects which your doctor can review with you. Health Benefits Of Quitting: The benefits of quitting start right away and keep improving the longer you go without smokin minutes: blood pressure and pulse return to normal 8 hours: oxygen levels return to normal 2 days: ability to smell and taste begins to improve as damaged nerves start to regrow 2-3 weeks: circulation and lung function improves 1-9 months: decreased cough, congestion and shortness of breath; less tired 1 year: risk of heart attack decreases by half 5 years: risk of lung cancer decreases by half; risk of stroke becomes the same as a non-smoker For information about how to quit smoking, visit the following links: [employer] , Clearing the Air, Quit Smoking Today - an online booklet. http://www.smokefree.gov/pubs/clearing_the_air.pdf Smokefree.gov http://smokefree.gov/ QuitNet http://www.[employer].com/ Azithromycin Oral tablet What is this medicine? AZITHROMYCIN (az ith grazyna MYE sin) is a macrolide antibiotic. It is used to treat or prevent certain kinds of bacterial infections. It will not work for colds, flu, or other viral infections. How should I use this medicine? Take this medicine by mouth with a full glass of water. Follow the directions on the prescription label. The tablets can be taken with food or on an empty stomach. If the medicine upsets your stomach, take it with food. Take your medicine at regular intervals. Do not take your medicine more often than directed. Take all of your medicine as directed even if you think your are better. Do not skip doses or stop your medicine early. Talk to your mine environmental engineer regarding the use of this medicine in children. Special care may be needed. What side effects may I notice from receiving this medicine? Side effects that you should report to your doctor or health managed care nurse as soon as possible: allergic reactions like skin rash, itching or hives, swelling of the face, lips, or tongue confusion, nightmares or hallucinations dark urine difficulty breathing hearing loss irregular heartbeat or chest pain pain or difficulty passing urine redness, blistering, peeling or loosening of the skin, including inside the mouth white patches or sores in the mouth yellowing of the eyes or skin Side effects that usually do not require medical attention (report to your doctor or health managed care nurse if they continue or are bothersome): diarrhea dizziness, drowsiness headache stomach upset or vomiting tooth discoloration vaginal irritation What may interact with this medicine? Do not take this medicine with any of the following medications: lincomycin This medicine may also interact with the following medications: amiodarone antacids cyclosporine digoxin magnesium nelfinavir phenytoin warfarin What if I miss a dose? If you miss a dose, take it as soon as you can. If it is almost time for your next dose, take only that dose. Do not take double or extra doses. Where should I keep my medicine? Keep out of the reach of children. Store at room temperature between 15 and 30 degrees C (59 and 86 degrees F). Throw away any unused medicine after the expiration date. What should I tell my health care provider before I take this medicine? They need to know if you have any of these conditions: kidney disease liver disease irregular heartbeat or heart disease an unusual or allergic reaction to azithromycin, erythromycin, other macrolide antibiotics, foods, dyes, or preservatives or trying to get breast-feeding What should I watch for while using this medicine? Tell your doctor or health managed care nurse if your symptoms do not improve. Do not treat diarrhea with over the counter products. Contact your doctor if you have diarrhea that lasts more than 2 days or if it is severe and watery. This medicine can make you more sensitive to the sun. Keep out of the sun. If you cannot avoid being in the sun, wear protective clothing and use sunscreen. Do not use sun lamps or tanning beds/booths. Tramadol Hydrochloride Oral tablet What is this medicine? TRAMADOL (TRA ma dole) is a pain reliever. It is used to treat moderate to severe pain in adults. How should I use this medicine? Take this medicine by mouth with a full glass of water. Follow the directions on the prescription label. If the medicine upsets your stomach, take it with food or milk. Do not take more medicine than you are told to take. Talk to your mine environmental engineer regarding the use of this medicine in children. Special care may be needed. What side effects may I notice from receiving this medicine? Side effects that you should report to your doctor or health managed care nurse as soon as possible: allergic reactions like skin rash, itching or hives, swelling of the face, lips, or tongue breathing difficulties, wheezing confusion itching light headedness or fainting spells redness, blistering, peeling or loosening of the skin, including inside the mouth seizures Side effects that usually do not require medical attention (report to your doctor or health managed care nurse if they continue or are bothersome): constipation dizziness drowsiness headache nausea, vomiting What may interact with this medicine? Do not take this medicine with any of the following medications: MAOIs like Carbex, Eldepryl, Marplan, Nardil, and Parnate This medicine may also interact with the following medications: alcohol or medicines that contain alcohol antihistamines benzodiazepines bupropion carbamazepine or oxcarbazepine clozapine cyclobenzaprine digoxin furazolidone linezolid medicines for depression, anxiety, or psychotic disturbances medicines for migraine headache like almotriptan, eletriptan, frovatriptan, naratriptan, rizatriptan, sumatriptan, zolmitriptan medicines for pain like pentazocine, buprenorphine, butorphanol, meperidine, nalbuphine, and propoxyphene medicines for sleep muscle relaxants naltrexone phenobarbital phenothiazines like perphenazine, thioridazine, chlorpromazine, mesoridazine, fluphenazine, prochlorperazine, promazine, and trifluoperazine procarbazine warfarin What if I miss a dose? If you miss a dose, take it as soon as you can. If it is almost time for your next dose, take only that dose. Do not take double or extra doses. Where should I keep my medicine? Keep out of the reach of children. Store at room temperature between 15 and 30 degrees C (59 and 86 degrees F). Keep container tightly closed. Throw away any unused medicine after the expiration date. What should I tell my health care provider before I take this medicine? They need to know if you have any of these conditions: brain tumor depression drug abuse or addiction head injury if you frequently drink alcohol containing drinks kidney disease or trouble passing urine liver disease lung disease, asthma, or breathing problems seizures or epilepsy suicidal thoughts, plans, or attempt; a previous suicide attempt by you or a family member an unusual or allergic reaction to tramadol, codeine, other medicines, foods, dyes, or preservatives or trying to get breast-feeding What should I watch for while using this medicine? Tell your doctor or health managed care nurse if your pain does not go away, if it gets worse, or if you have new or a different type of pain. You may develop tolerance to the medicine. Tolerance means that you will need a higher dose of the medicine for pain relief. Tolerance is normal and is expected if you take this medicine for a long time. Do not suddenly stop taking your medicine because you may develop a severe reaction. Your body becomes used to the medicine. This does NOT mean you are addicted. Addiction is a behavior related to getting and using a drug for a non-medical reason. If you have pain, you have a medical reason to take pain medicine. Your doctor will tell you how much medicine to take. If your doctor wants you to stop the medicine, the dose will be slowly lowered over time to avoid any side effects. You may get drowsy or dizzy. Do not drive, use machinery, or do anything that needs mental alertness until you know how this medicine affects you. Do not stand or sit up quickly, especially if you are an older patient. This reduces the risk of dizzy or fainting spells. Alcohol can increase or decrease the effects of this medicine. Avoid alcoholic drinks. You may have constipation. Try to have a bowel movement at least every 2 to 3 days. If you do not have a bowel movement for 3 days, call your doctor or health managed care nurse. Your mouth may get dry. Chewing sugarless gum or sucking hard candy, and drinking plenty of water may help. Contact your doctor if the problem does not go away or is severe. You have been given the following additional information: Bronchitis, Antiobiotic Treatment (Adult) Pleurisy Smoking Cessation Azithromycin Oral tablet Tramadol Hydrochloride Oral tablet No driving or operating machinery while taking medication. (Electronically signed by Anurag Mccarty MD 11/22/2016 15:29)
== END 2016-11-22 12:27 | disposition home or self-care (01) ==
LOC: ED SRH 10:53
DX: J20.9 Acute bronchitis, unspecified (principal); R09.1 Pleurisy; F17.210 Nicotine dependence, cigarettes, uncomplicated; Z79.899 Other long term (current) drug therapy; Z88.8 Allergy status to other drugs, medicaments and biological substances
CPT/HCPCS: 90004; 90100; 90616; 91556; 92235; 92530; 92610; 94001; 94060; 95059

== ENCOUNTER 2017-01-06 11:36 | Emergency (ER) | payer OTHER ==
--- NOTE | 2017-01-06 14:23 | DIAGNOSTIC IMAGING REPORT ---
PROCEDURE: CT ABD/PELVIS WITH CONTRAST CLINICAL INDICATION: Upper abdominal pain with nausea, vomiting and diarrhea. Tanisha see eighth 15.5. Initial encounter. TECHNIQUE: 125 ml of Isovue 300 were injected intravenously and axial images were obtained of the entire abdomen and pelvis with sagittal and coronal reformations. COMPARISON: None. FINDINGS: ABDOMEN: Fluid throughout the colon. Several nondilated fluid filled loops of small bowel. Lung bases are clear. Heart size is normal. Liver, gallbladder, pancreas, spleen, adrenal glands and kidneys are normal. Mild atherosclerosis of the aorta. Small hiatal hernia. PELVIS: Normal appendix. Hysterectomy and bilateral oophorectomy. Multiple surgical clips. No pelvic mass, free fluid or inflammatory changes. No suspicious osseous lesions. IMPRESSION: 1. Fluid throughout the large bowel suggestive of enterocolitis 2. Small hiatal hernia 3. Hysterectomy and bilateral oophorectomy 4. Results discussed with Dr. Short All CT scans at this facility use dose modulation, iterative reconstruction, and/or weight-based dosing when appropriate to reduce radiation dose to as low as reasonably achievable.
--- NOTE | 2017-01-06 14:38 | ED ORDER SUMMARY ---
..... Patient: LEÓN ROSENTHAL [facility] VisitID: [id number] [place] [address] 51y, F Registration Date/Time: 01/06/2017 ORDER SHEET Weight: 74.8 kg (stated) Allergies: No Known Drug Allergy GENERAL ORDERS: CBC w Diff Urgent (11:54 01/06/2017 KKnebel R.N. per protocol) (11:54 KKnebel R.N.) CMP Urgent (11:54 01/06/2017 KKnebel R.N. per protocol) (11:54 KKnebel R.N.) UA-Culture if indicated Urgent (11:54 01/06/2017 KKnebel R.N. per protocol) (Ack 11:55 Kathi) (12:37 KKnebel R.N.) Vitals (11:54 01/06/2017 KKnebel R.N. per protocol) (11:54 KKnebel R.N.) NPO (11:54 01/06/2017 KKnebel R.N. per protocol) (11:54 KKnebel R.N.) Amylase Urgent (12:08 01/06/2017 Jadon Mccormick) (Ack 12:11 Sobia) (12:13 KKnebel R.N.) Lipase Urgent (12:08 01/06/2017 Jadon Mccormick) (Ack 12:11 Sobia) (12:13 KKnebel R.N.) CT Abd/Pel w Cont (No) (22/0.8) Urgent (13:01 01/06/2017 Jadon Mccormick) (Ack 13:02 Sobia) (13:46 KKnebel R.N.) MEDICATION ORDERS: Bentyl PO 20 mg (NOW) (14:03 01/06/2017 Jadon Mccormick) (14:29 KKnebel R.N.) Tylenol PO 1,000 mg (NOW) (14:24 01/06/2017 Jadon Mccormick) (14:29 KKnebel R.N.) IV FLUIDS: IV NS : initial bolus 1000 mL (1000 mL/hr), then 1000 mL/hr for X1 (NOW) (11:54 01/06/2017 KKnebel R.N. per protocol) (12:13 KKnebel R.N.) IV Saline Lock (11:54 01/06/2017 KKnebel R.N. per protocol) (12:17 KKnebel R.N.) Zofran IV 4 mg (NOW) (12:07 01/06/2017 Jadon Mccormick) (12:13 Otto R.N.) Famotidine IV 20 mg/50mL (NOW) (12:07 01/06/2017 Jadon Mccormick) (12:16 BARRERAneaggie R.N.) ORDER SHEET NOTES: [Electronically signed by Dilip Short Dr. (14:43 01/06/2017)] [Electronically signed by León Castillo R.N. (16:08 01/06/2017)] [Electronically locked/signed by León Castillo R.N. (16:08 01/06/2017)]
--- NOTE | 2017-01-06 14:38 | ED NURSING NOTES ---
Clinical Report - Nurses [facility] [address] [place] [address] 01/06/2017 11:39 Patient: ZOIE ROSENTHAL TRIAGE Triage time 11:46 Jan 06 2017. Acuity: LEVEL 3. Chief Complaint: ABDOMINAL PAIN, NAUSEA, VOMITING and DIARRHEA. Alert. No acute distress. LOLY COMA SCORE: [place] Coma Scale: 15- eyes open spontaneously (4); best verbal response- oriented x 4 (5); best motor response- obeys commands (6). --11:51 Zoie Castillo R.N. 11:46 01/06/17. BP: 136/91. HR: 83. RR: 16. O2 saturation: 98%. Temp: 98.2 F. Pain level now: 05/05. --11:51 Zoie Castillo R.N. Weight: 74.8 kg stated. Height/Length: 62 inches Per Patient. BMI: 30.2. --11:51 Zoie Castillo R.N. Medications Synthroid Oral (Tablet 200 mcg) 1 tablet, daily. --11:47 Zoie Castillo R.N. PriLOSEC Oral (Capsule Delayed Release 40 mg), daily. --11:47 Zoie Castillo R.N. CeleXA Oral (Tablet 40 mg), daily. --11:47 Zoie Castillo R.N. LORazepam Oral (Tablet 1 mg), PRN. --11:47 Zoie Castillo R.N. Allergies No Known Drug Allergy. --11:49 Zoie Castillo R.N. History Arrived by private vehicle. Historian: patient. This started last night. Treatment PROGRAM COUNSELOR: None. PAST MEDICAL HX: Immunizations: up-to-date. The patient has had a hysterectomy. Denies current . SOCIAL HX: Current every day heavy tobacco smoker (cigarette)- less than 1 pack per day. No alcohol use or drug use. No recent travel. No infectious disease exposure. No known contact with a sick individual. SELF HARM ASSESSMENT: A self harm assessment was performed. The patient answered "no" to the question "Do you have thoughts of harming or killing yourself?". FALL RISK ASSESSMENT: Fall risk assessment completed. No fall risk identified. NUTRITIONAL RISK ASSESSMENT: The nutritional risk assessment revealed no deficiencies. FUNCTIONAL ASSESSMENT: Functional assessment: no impairments noted. LEARNING NEEDS ASSESSMENT: The learning needs assessment revealed no barriers. ABUSE ASSESSMENT: Abuse assessment: The patient was asked "Do you feel safe in your home?". SKIN INTEGRITY ASSESSMENT: Skin integrity risk assessment completed. No skin integrity risk identified. --11:51 Zoie Castillo R.N. PROBLEMS: Pleurisy. Bronchitis. Grave's Disease. Hypothyroidism. Wound Check. Contusion. Total abd hysterectomy. --11:49 Zoie Castillo R.N. ADDITIONAL SURGERIES: . Hysterectomy. --11:49 Zoie Castillo R.N. Interventions ID band on patient. To room. --11:51 Zoie Castillo R.N. PHYSICAL ASSESSMENT Ambulatory to room. GENERAL / NEURO / PSYCH: Alert. Oriented X 4. RESPIRATORY: Respirations not labored. CVS: Capillary refill less than 2 seconds. GI / : The patient has had nausea and diarrhea. Emesis noted. Abdominal tenderness in the upper abdomen. SKIN: Skin is warm and dry. --11:52 Zoie Castillo R.N. NURSING PROGRESS NOTES Pulse oximeter and NIBP monitor placed on patient; monitor alarms on. Patient gowned. Head of bed elevated. Two patient identifiers checked. Call light placed in reach. Side rails up x 1. Bed placed in lowest position. Brakes of bed on. Patient ready for evaluation- chart flagged. --11:53 Zoie Castillo R.N. 11:53 01/06/2017 Site #1 started via IV in the left hand with an 20g angiocath, with aseptic technique and good blood return; one attempt. Blood drawn: rainbow set. Labeled in the presence of the patient and sent to the lab. Saline lock flushed with 10 mL saline. --11:53 Zoie Castillo R.N. 12:13 01/06/2017 Started bag #1 1000 mL IV Fluids IV NS (Saline); bolus of 1000 mL over 1 hour(s) via site #1 via IV pump. Allergies verified and confirmed 5 rights. IV patency established. IV site checked: no pain, redness, or swelling. IV flushed thoroughly pre- and post-medication administration. --12:13 Zoie Castillo R.N. 12:13 01/06/2017 Zofran (Ondansetron HCl) IVP 4 mg given over 2 minute(s) via site #1. Allergies verified and confirmed 5 rights. IV patency established. IV site checked: no pain, redness, or swelling. IV flushed thoroughly pre- and post-medication administration. IVP given by RN. --12:13 Zoie Castillo R.N. 12:16 01/06/2017 Famotidine IVP 20 mg given over 30 minute(s) via site #1. Allergies verified and confirmed 5 rights. IV patency established. IV site checked: no pain, redness, or swelling. IV flushed thoroughly pre- and post-medication administration. --12:16 Zoie Castillo R.N. 12:38 01/06/2017 Site #1 removed. Catheter intact. Bandaid applied (hurting patient pt requested site change). --12:38 Zoie Castillo R.N. 12:38 01/06/2017 Site #2 started via IV in the right antecubital space with an 20g angiocath, with aseptic technique and good blood return; one attempt. --12:38 Zoie Castillo R.N. Patient ID band checked for patient name and birthdate: patient confirmed. Instructions provided to collect clean catch urine and patient verbalized understanding. Clean catch urine collected with return of yellow-colored clear urine; sample sent to lab for urinalysis and culture. Specimen labeled in the presence of the patient. --12:38 Zoie Castillo R.N. 12:55 01/06/17. BP: 122/76. HR: 88. RR: 16. O2 saturation: 93%. Pain level now: 01/03. --12:55 Zoie Castillo R.N. 13:46 01/06/2017 IV Fluids IV NS Discontinued: bag #1 infused. Total amount infused: 1000 mL. IV patency established. IV site checked: no pain, redness, or swelling. IV flushed thoroughly. --13:46 Zoie Castillo R.N. 14:29 01/06/2017 Bentyl (Dicyclomine HCl) PO 20 mg given. Allergies verified and confirmed 5 rights. --14:29 Zoie Castillo R.N. 14:29 01/06/2017 Tylenol (Acetaminophen) PO Tablets 1000 mg given. Allergies verified and confirmed 5 rights. --14:29 Zoie Castillo R.N. 14:31 01/06/17. BP: 127/80. HR: 91. RR: 16. O2 saturation: 99%. Pain level now: 02/02. --14:32 Zoie Castillo R.N. DISPOSITION / DISCHARGE Departure time: 14:Jan 06 2017. Condition at departure: improved. No learning barriers present. Discharge instructions provided and reviewed with the patient. Reviewed medication(s) side effects, precautions, dosing and course information. Prescription(s) given to the patient. Reviewed referral to the public health department for followup. Reviewed need to stop smoking- provided smoking cessation counseling. Patient verbalized understanding. Written instructions provided in Burmese. The patient was discharged home and unaccompanied at time of discharge. She left the Emergency Department ambulatory and via private vehicle. Patient driving. FALL RISK ASSESSMENT: Fall risk assessment completed. No fall risk identified. --14:52 Zoie Castillo R.N. 14:31 01/06/17. BP: 127/80. HR: 91. RR: 16. O2 saturation: 99%. Pain level now: 02/02. --14:52 Zoie Castillo R.N. Locked/Released at 01/06/2017 16:08 by Zoie Castillo R.N.
--- NOTE | 2017-01-06 14:38 | ED CLINICAL REPORT ---
Clinical Report - Physicians/Mid Levels [facility] [address] [place] [address] 01/06/2017 11:39 Patient: LEÓN ROSENTHAL Time Seen: 11:45; initial patient contact. Arrived- By private vehicle. Historian- patient. HISTORY OF PRESENT ILLNESS Chief Complaint: ABDOMINAL PAIN. At its maximum, severity described as moderate. When seen in the E.D., severity described as moderate. Modifying factors. Not worsened by anything. Not relieved by anything. It is described as sharp and cramping and it is described as located in the epigastric area and radiating to the upper back. The patient has had nausea, loss of appetite and vomiting. No diarrhea. Similar symptoms previously: None. Recent medical care: Not recently seen/assessed. REVIEW OF SYSTEMS No constipation, black stools, hematemesis, difficulty with urination or pain with urination. No urinary frequency, bloody stools or fever. She has had chills. All systems otherwise negative, except as recorded above. PAST HISTORY Pleurisy. Bronchitis. Grave's Disease. Hypothyroidism. Wound Check. Contusion. Total abd hysterectomy. SURGERIES: . Hysterectomy. SOCIAL HISTORY Current every day smoker. No alcohol use or drug use. ADDITIONAL NOTES The nursing notes have been reviewed. PHYSICAL EXAM Vital Signs: 01/06/2017 11:46 BP: 136/91. HR: 83. RR: 16. O2 saturation: 98%. Temp: 98.2 F. Pain level now: 8/10. Have been reviewed. Hypertensive. Heart rate normal. Respiratory rate normal. Temperature normal. Oxygen saturation normal. Appearance: Alert. Oriented X3. Appears to be in pain. Eyes: Eyes normal inspection. No scleral icterus. ENT: Dry mucous membranes present. CVS: Normal heart rate and rhythm. Heart sounds normal. Respiratory: No respiratory distress. Breath sounds normal. Abdomen: Soft. Moderate tenderness in the right upper quadrant and epigastric area with guarding present. No rebound tenderness or Mcleod's sign present. Bowel sounds normal. No organomegaly. No mass. Back: Normal inspection. No CVA tenderness. Skin: Skin warm and dry. No rash. Extremities: No lower extremity edema. Neuro: Oriented X 3. LABS, X-RAYS, AND EKG Abdominal CT: 1. Fluid throughout the large bowel suggestive of enterocolitis 2. Small hiatal hernia 3. Hysterectomy and bilateral oophorectomy. Study type: abdomen and pelvis. Abdominal CT performed with IV contrast. The study was independently viewed by me, interpreted by the radiologist and discussed with the radiologist. Prior studies were not available for comparison. Interpretation time: 14:28. Laboratory Tests: UA-Culture if indicated: (TIA: 01/06/2017 12:30) ( MsgRcvd 01/06/2017 13:47) Final results Test Result Flag Units (Reference) URINE COLOR YELLOW URINE APPEARANCE CLEAR URINE GLUCOSE NEGATIVE (NEGATIVE) URINE BILIRUBIN NEGATIVE (NEGATIVE) URINE KETONE NEGATIVE (NEGATIVE) URINE SPECIFIC GRAVITY 1.025 (1.010-1.030) URINE PH 6.0 (5.0-8.0) URINE PROTEIN NEGATIVE (NEGATIVE) URINE UROBILINOGEN 0.2 EU/dL (0.2-1.0) URINE NITRITE NEGATIVE (NEGATIVE) URINE BLOOD NEGATIVE (NEGATIVE) URINE LEUK ESTERASE NEGATIVE (NEGATIVE) URINE RBC NONE SEEN rbc/hpf (0-1) URINE WBC 0-1 wbc/hpf (0-1) URINE EPITHELIAL CELLS 1-3 EPI/hpf (0-5) URINE BACTERIA TRACE (<1+) (NONE SEEN) URINE COMMENT CULT NOT INDICATED URINE CULTURES ARE SET-UP BASED ON THE FOLLOWING CRITERIA:POSITIVE NITRITEPOSITIVE LEUKOCYTE ESTERASEGREATER THAN 10 WHITE BLOOD CELLSMODERATE (2+) OR GREATER BACTERIA CBC w Diff: (TIA: 01/06/2017 11:55) ( [facility] 01/06/2017 12:12) Final results Test Result Flag Units (Reference) WHITE BLOOD COUNT 15.5 H K/uL (4.5-11.5) RED BLOOD COUNT 4.80 M/uL (4.00-5.20) HEMOGLOBIN 14.6 gm/dL (12.0-16.0) HEMATOCRIT 44.3 % (36.0-46.0) MEAN CELL VOLUME 92 fL (80-100) MEAN CORPUSCULAR HGB 31 pg (26-34) MEAN CORPUSCULAR HGB CONC 33 g/dL (31-37) RED CELL DISTRIBUTION WIDTH 13.5 % (11.6-14.8) PLATELET COUNT 266 K/uL (150-400) NEUTROPHIL % 92.8 H % (50-75) LYMPH % 5.6 L % (25-40) MONO % 1.2 L % (3-14) EOSINOPHIL % 0.4 % (0-4) BASOPHIL % 0 % (0-2) CMP: (TIA: 01/06/2017 11:55) ( MsgRcvd 01/06/2017 12:37) Final results Test Result Flag Units (Reference) GLUCOSE 110 mg/dL (70-110) BUN 22 H mg/dL (7-18) CREATININE 0.8 mg/dL (0.6-1.3) Estimated GFR >60 mL/min Estimated GFR- >60 mL/min Note: Persistent reduction over 3 months in eGFR<60 mL/min/1.73 m2 defines CKD. Patients with eGFR values>=60 mL/min/1.73 m2 may also have CKD if evidence ofpersistent proteinuria. Additional information may be foundat www.kidney.org. SODIUM 141 mmol/L (136-145) POTASSIUM 4.6 mmol/L (3.5-5.1) CHLORIDE 103 mmol/L (98-107) CARBON DIOXIDE 23 mmol/L (21-32) CALCIUM 9.4 mg/dL (8.5-10.1) TOTAL PROTEIN 8.4 H g/dL (6.4-8.2) ALBUMIN 3.7 g/dL (3.3-5.0) BILIRUBIN, TOTAL 0.4 mg/dL (0.0-1.0) ALKALINE PHOSPHATASE 100 U/L (46-116) AST (SGOT) 28 U/L (15-37) ALT (SGPT) 25 U/L (12-78) LIPASE 700 H U/L (73-393) AMYLASE 156 H U/L (25-115) . PROGRESS AND PROCEDURES Course of Care: Bentyl 20 mg PO given. Zofran 4 mg IVP given. Physical exam findings are improved. Symptoms much better. Disposition: Discharged home in good and improved condition. Condition: good. CLINICAL IMPRESSION Acute viral gastroenteritis. Mild leukocytosis. INSTRUCTIONS Drink plenty of fluids. Your Current Medications: CONTINUE TAKING THE FOLLOWING MEDICATIONS: CeleXA Oral : Tablet 40 mg, daily. LORazepam Oral : Tablet 1 mg, PRN. PriLOSEC Oral : Capsule Delayed Release 40 mg, daily. Synthroid Oral : Tablet 200 mcg, 1 tablet daily. Prescription Medications: Bentyl 20 mg tablets: take 1 orally every 6 hours as needed for abdominal cramps or abdominal discomfort. Dispense thirty (30). No refill. Substitution is permissible. Zofran ODT 4 mg: take 1 orally every 6 hours as needed for nausea and vomiting. Dispense ten (10). No refill. Substitution is permissible. Follow-up with: [facility], , , [facility] [address], [place] [address]; [facility], , [address] [place] [address], [id number], [place] [address] Follow up in about four days. Call for an appointment. (Electronically signed by Dilip Short Dr. 01/06/2017 14:43)
--- NOTE | 2017-01-06 14:38 | ED CLINICAL REPORT ---
Clinical Report - Physicians/Mid Levels [facility] [address] [place] [address] 01/06/2017 11:39 Patient: LEÓN ROSENTHAL Time Seen: 11:45; initial patient contact. Arrived- By private vehicle. Historian- patient. HISTORY OF PRESENT ILLNESS Chief Complaint: ABDOMINAL PAIN. At its maximum, severity described as moderate. When seen in the E.D., severity described as moderate. Modifying factors. Not worsened by anything. Not relieved by anything. It is described as sharp and cramping and it is described as located in the epigastric area and radiating to the upper back. The patient has had nausea, loss of appetite and vomiting. No diarrhea. Similar symptoms previously: None. Recent medical care: Not recently seen/assessed. REVIEW OF SYSTEMS No constipation, black stools, hematemesis, difficulty with urination or pain with urination. No urinary frequency, bloody stools or fever. She has had chills. All systems otherwise negative, except as recorded above. PAST HISTORY Pleurisy. Bronchitis. Grave's Disease. Hypothyroidism. Wound Check. Contusion. Total abd hysterectomy. SURGERIES: . Hysterectomy. SOCIAL HISTORY Current every day smoker. No alcohol use or drug use. ADDITIONAL NOTES The nursing notes have been reviewed. PHYSICAL EXAM Vital Signs: 01/06/2017 11:46 BP: 136/91. HR: 83. RR: 16. O2 saturation: 98%. Temp: 98.2 F. Pain level now: 8/10. Have been reviewed. Hypertensive. Heart rate normal. Respiratory rate normal. Temperature normal. Oxygen saturation normal. Appearance: Alert. Oriented X3. Appears to be in pain. Eyes: Eyes normal inspection. No scleral icterus. ENT: Dry mucous membranes present. CVS: Normal heart rate and rhythm. Heart sounds normal. Respiratory: No respiratory distress. Breath sounds normal. Abdomen: Soft. Moderate tenderness in the right upper quadrant and epigastric area with guarding present. No rebound tenderness or Mcleod's sign present. Bowel sounds normal. No organomegaly. No mass. Back: Normal inspection. No CVA tenderness. Skin: Skin warm and dry. No rash. Extremities: No lower extremity edema. Neuro: Oriented X 3. LABS, X-RAYS, AND EKG Abdominal CT: 1. Fluid throughout the large bowel suggestive of enterocolitis 2. Small hiatal hernia 3. Hysterectomy and bilateral oophorectomy. Study type: abdomen and pelvis. Abdominal CT performed with IV contrast. The study was independently viewed by me, interpreted by the radiologist and discussed with the radiologist. Prior studies were not available for comparison. Interpretation time: 14:28. Laboratory Tests: UA-Culture if indicated: (TIA: 01/06/2017 12:30) ( MsgRcvd 01/06/2017 13:47) Final results Test Result Flag Units (Reference) URINE COLOR YELLOW URINE APPEARANCE CLEAR URINE GLUCOSE NEGATIVE (NEGATIVE) URINE BILIRUBIN NEGATIVE (NEGATIVE) URINE KETONE NEGATIVE (NEGATIVE) URINE SPECIFIC GRAVITY 1.025 (1.010-1.030) URINE PH 6.0 (5.0-8.0) URINE PROTEIN NEGATIVE (NEGATIVE) URINE UROBILINOGEN 0.2 EU/dL (0.2-1.0) URINE NITRITE NEGATIVE (NEGATIVE) URINE BLOOD NEGATIVE (NEGATIVE) URINE LEUK ESTERASE NEGATIVE (NEGATIVE) URINE RBC NONE SEEN rbc/hpf (0-1) URINE WBC 0-1 wbc/hpf (0-1) URINE EPITHELIAL CELLS 1-3 EPI/hpf (0-5) URINE BACTERIA TRACE (<1+) (NONE SEEN) URINE COMMENT CULT NOT INDICATED URINE CULTURES ARE SET-UP BASED ON THE FOLLOWING CRITERIA:POSITIVE NITRITEPOSITIVE LEUKOCYTE ESTERASEGREATER THAN 10 WHITE BLOOD CELLSMODERATE (2+) OR GREATER BACTERIA CBC w Diff: (TIA: 01/06/2017 11:55) ( [facility] 01/[facility] 12[facility]12) Final results Test Result Flag Units (Reference) WHITE BLOOD COUNT 15.5 H K/uL (4.5-11.5) RED BLOOD COUNT 4.80 M/uL (4.00-5.20) HEMOGLOBIN 14.6 gm/dL (12.0-16.0) HEMATOCRIT 44.3 % (36.0-46.0) MEAN CELL VOLUME 92 fL (80-100) MEAN CORPUSCULAR HGB 31 pg (26-34) MEAN CORPUSCULAR HGB CONC 33 g/dL (31-37) RED CELL DISTRIBUTION WIDTH 13.5 % (11.6-14.8) PLATELET COUNT 266 K/uL (150-400) NEUTROPHIL % 92.8 H % (50-75) LYMPH % 5.6 L % (25-40) MONO % 1.2 L % (3-14) EOSINOPHIL % 0.4 % (0-4) BASOPHIL % 0 % (0-2) CMP: (TIA: 01/06/2017 11:55) ( MsgRcvd 01/06/2017 12:37) Final results Test Result Flag Units (Reference) GLUCOSE 110 mg/dL (70-110) BUN 22 H mg/dL (7-18) CREATININE 0.8 mg/dL (0.6-1.3) Estimated GFR >60 mL/min Estimated GFR- >60 mL/min Note: Persistent reduction over 3 months in eGFR<60 mL/min/1.73 m2 defines CKD. Patients with eGFR values>=60 mL/min/1.73 m2 may also have CKD if evidence ofpersistent proteinuria. Additional information may be foundat www.kidney.org. SODIUM 141 mmol/L (136-145) POTASSIUM 4.6 mmol/L (3.5-5.1) CHLORIDE 103 mmol/L (98-107) CARBON DIOXIDE 23 mmol/L (21-32) CALCIUM 9.4 mg/dL (8.5-10.1) TOTAL PROTEIN 8.4 H g/dL (6.4-8.2) ALBUMIN 3.7 g/dL (3.3-5.0) BILIRUBIN, TOTAL 0.4 mg/dL (0.0-1.0) ALKALINE PHOSPHATASE 100 U/L (46-116) AST (SGOT) 28 U/L (15-37) ALT (SGPT) 25 U/L (12-78) LIPASE 700 H U/L (73-393) AMYLASE 156 H U/L (25-115) . PROGRESS AND PROCEDURES Course of Care: Bentyl 20 mg PO given. Zofran 4 mg IVP given. Physical exam findings are improved. Symptoms much better. Disposition: Discharged home in good and improved condition. Condition: good. CLINICAL IMPRESSION Acute viral gastroenteritis. Mild leukocytosis. INSTRUCTIONS Drink plenty of fluids. Your Current Medications: CONTINUE TAKING THE FOLLOWING MEDICATIONS: CeleXA Oral : Tablet 40 mg, daily. LORazepam Oral : Tablet 1 mg, PRN. PriLOSEC Oral : Capsule Delayed Release 40 mg, daily. Synthroid Oral : Tablet 200 mcg, 1 tablet daily. Prescription Medications: Bentyl 20 mg tablets: take 1 orally every 6 hours as needed for abdominal cramps or abdominal discomfort. Dispense thirty (30). No refill. Substitution is permissible. Zofran ODT 4 mg: take 1 orally every 6 hours as needed for nausea and vomiting. Dispense ten (10). No refill. Substitution is permissible. Follow-up with: [facility], , , [facility] [address], [place] [address]; [facility], [facility] Practice, , [address] [place] [address], [id number], [place] [id number] Follow up in about four days. Call for an appointment. (Electronically signed by Dilip Short Dr. 01/06/2017 14:43)
--- NOTE | 2017-01-06 14:38 | ED ORDER SUMMARY ---
..... Patient: LEÓN ROSENTHAL [facility] Visit[facility] [id number] [place] [address] 51y, F Registration Date/Time: 01/06/2017 ORDER SHEET Weight: 74.8 kg (stated) Allergies: No Known Drug Allergy GENERAL ORDERS: CBC w Diff Urgent (11:54 01/06/2017 KKnebel R.N. per protocol) (11:54 KKnebel R.N.) CMP Urgent (11:54 01/06/2017 KKnebel R.N. per protocol) (11:54 KKnebel R.N.) UA-Culture if indicated Urgent (11:54 01/06/2017 KKnebel R.N. per protocol) (Ack 11:55 Kathi) (12:37 KKnebel R.N.) Vitals (11:54 01/06/2017 KKnebel R.N. per protocol) (11:54 KKnebel R.N.) NPO (11:54 01/06/2017 KKnebel R.N. per protocol) (11:54 KKnebel R.N.) Amylase Urgent (12:08 01/06/2017 Jadon Mccormick) (Ack 12:11 Sobia) (12:13 KKnebel R.N.) Lipase Urgent (12:08 01/06/2017 Jadon Mccormick) (Ack 12:11 Sobia) (12:13 KKnebel R.N.) CT Abd/Pel w Cont (No) (22/0.8) Urgent (13:01 01/06/2017 Jadon Mccormick) (Ack 13:02 Sobia) (13:46 KKnebel R.N.) MEDICATION ORDERS: Bentyl PO 20 mg (NOW) (14:03 01/06/2017 Jadon Mccormick) (14:29 KKnebel R.N.) Tylenol PO 1,000 mg (NOW) (14:24 01/06/2017 Jadon Mccormick) (14:29 KKnebel R.N.) IV FLUIDS: IV NS : initial bolus 1000 mL (1000 mL/hr), then 1000 mL/hr for X1 (NOW) (11:54 01/06/2017 KKnebel R.N. per protocol) (12:13 KKnebel R.N.) IV Saline Lock (11:54 01/06/2017 KKnebel R.N. per protocol) (12:17 KKnebel R.N.) Zofran IV 4 mg (NOW) (12:07 01/06/2017 Jadon Mccormick) (12:13 Otto R.N.) Famotidine IV 20 mg/50mL (NOW) (12:07 01/06/2017 Jadon Mccormick) (12:16 BARRERAneaggie R.N.) ORDER SHEET NOTES: [Electronically signed by Dilip Short Dr. (14:43 01/06/2017)] [Electronically signed by León Castillo R.N. (16:08 01/06/2017)] [Electronically locked/signed by León Castillo R.N. (16:08 01/06/2017)]
--- NOTE | 2017-01-06 16:08 | ED DISCHARGE INSTRUCTIONS ---
Patient: LEÓN ROSENTHAL General Instructions [facility] VisitID: [id number] [address] [place] [address] 51y, F Registration Date/Time: 01/06/2017 Acute viral gastroenteritis. Mild leukocytosis. INSTRUCTIONS Drink plenty of fluids. Your Current Medications: CONTINUE TAKING THE FOLLOWING MEDICATIONS: CeleXA Oral : Tablet 40 mg, daily. LORazepam Oral : Tablet 1 mg, PRN. PriLOSEC Oral : Capsule Delayed Release 40 mg, daily. Synthroid Oral : Tablet 200 mcg, 1 tablet daily. Prescription Medications: Bentyl 20 mg tablets: take 1 orally every 6 hours as needed for abdominal cramps or abdominal discomfort. Dispense thirty (30). No refill. Substitution is permissible. Zofran ODT 4 mg: take 1 orally every 6 hours as needed for nausea and vomiting. Dispense ten (10). No refill. Substitution is permissible. Follow-up with: [facility], , , [address], [place] [address]; [facility], , [address] [place] [address], [address], [place] [address] Follow up in about four days. Call for an appointment. ADDITIONAL INFORMATION Viral Gastroenteritis (6Yr-Adult) Gastroenteritis is another name for thestomach flu.It is most often caused by a virus that affects the stomach and intestinal tract. Symptoms include stomach cramping and fever, vomiting and/or diarrhea, and can last from 2 to 7 days. The danger from repeated vomiting or diarrhea is dehydration. This is the loss of too much water and minerals from the body. When this occurs, body fluids must be replaced. Antibiotics are not effective for this illness, but simple home treatment will be helpful. Home Care If symptoms are severe, rest at home for the next 24 hours. Avoid tobacco, caffeine, and alcohol use, which can worsen symptoms. Acetaminophen (Tylenol) or ibuprofen (Motrin, Advil) may be usedfor fever or pain unless another medication was prescribed. NOTE: If you have chronic liver or kidney disease or ever had a stomach ulcer or GI bleeding, talk with your doctor before using these medicines. Aspirin should never be used in anyone under 18 years of age who is ill with a fever. It may cause severe liver damage. If medicines for diarrhea or vomiting were prescribed, be sure they are takenonly as directed. If vomiting, drink small amounts of clear fluids (such as water, sports drinks, clear sodas) at frequent intervals to prevent dehydration. Start with 1 to 2 tablespoons every 10 minutes. Once vomiting stops, follow these guidelines: During The First 12 To 24 Hours follow the diet below: Beverages: Sport drinks like Gatorade, soft drinks without caffeine; jj rajinder, mineral water (plain or flavored), decaffeinated tea and coffee. Soups: Clear broth, consomm and bouillon Desserts: Plain gelatin (Jell-O), Popsicles and fruit juice bars. During The Next 24 Hours you may add the following to the above: Hot cereal, plain toast, bread, rolls, crackers Plain noodles, rice, mashed potatoes, chicken noodle or rice soup Unsweetened canned fruit (avoid pineapple), bananas Limit fat intake to less than 15 grams per day by avoiding margarine, butter, oils, mayonnaise, sauces, gravies, fried foods, peanut butter, meat, poultry, and fish. Limit fiber; avoid raw or cooked vegetables, fresh fruits (except bananas), and bran cereals. Limit caffeine and chocolate. Do not use spices or seasonings except salt. During The Next 24 Hours The patient can gradually resume a normal diet as symptoms lessen. Preventing Spread Hand washing with soap and water is the best way to prevent the spread of viruses. Caregivers should wash their hands before andafter touching the sick person. The sick person, as well as everyone in the family,should wash their hands after using the toilet and before meals. Clean the toilet after each use. People with diarrhea should not prepare food for others. If you are preparing your own foods, wash your hands before and after. Follow Up with your doctor as advised. Call your doctor if you are not improving over the next 2 to 3 days. If a stool (diarrhea) sample was taken, you may call in 2 days (or as directed) for the results. Get Prompt Medical Attention if any of the following occur: Increasing abdominal pain Continued vomiting (unable to keep liquids down) Frequent diarrhea (more than 5 times a day) Blood in vomit or stool (black or red color) Dark urine, reduced urine output, or extreme thirst Weakness, dizziness, fainting Drowsiness, confusion, stiff neck, or seizure Fever of 100.4F (38C) oral or higher, not better with fever medication New rash Dicyclomine Hydrochloride Oral tablet What is this medicine? DICYCLOMINE (dye SYE sondra meen) is used to treat bowel problems including irritable bowel syndrome. How should I use this medicine? Take this medicine by mouth with a glass of water. Follow the directions on the prescription label. It is best to take this medicine on an empty stomach, 30 minutes to 1 hour before meals. Take your medicine at regular intervals. Do not take your medicine more often than directed. Talk to your shorts sifter regarding the use of this medicine in children. Special care may be needed. While this drug may be prescribed for children as young as 6 months of age for selected conditions, precautions do apply. Patients over 65 years old may have a stronger reaction and need a smaller dose. What side effects may I notice from receiving this medicine? Side effects that you should report to your doctor or health manager career as soon as possible: agitation, nervousness, confusion difficulty swallowing dizziness, drowsiness fast or slow heartbeat hallucinations pain or difficulty passing urine Side effects that usually do not require medical attention (report to your doctor or health manager career if they continue or are bothersome): constipation headache nausea or vomiting sexual difficulty What may interact with this medicine? amantadine antacids benztropine digoxin disopyramide medicines for allergies, colds and breathing difficulties medicines for alzheimer's disease medicines for anxiety or sleeping problems medicines for depression or psychotic disturbances medicines for diarrhea medicines for pain metoclopramide tegaserod What if I miss a dose? If you miss a dose, take it as soon as you can. If it is almost time for your next dose, take only that dose. Do not take double or extra doses. Where should I keep my medicine? Keep out of the reach of children. Store at room temperature below 30 degrees C (86 degrees F). Protect from light. Throw away any unused medicine after the expiration date. What should I tell my health care provider before I take this medicine? They need to know if you have any of these conditions: difficulty passing urine esophagus problems or heartburn glaucoma heart disease, or previous heart attack myasthenia gravis prostate trouble stomach infection, or obstruction ulcerative colitis an unusual or allergic reaction to dicyclomine, other medicines, foods, dyes, or preservatives or trying to get breast-feeding What should I watch for while using this medicine? You may get drowsy, dizzy, or have blurred vision. Do not drive, use machinery, or do anything that needs mental alertness until you know how this medicine affects you. To reduce the risk of dizzy or fainting spells, do not sit or stand up quickly, especially if you are an older patient. Alcohol can make you more drowsy, avoid alcoholic drinks. Stay out of bright light and wear sunglasses if this medicine makes your eyes more sensitive to light. Avoid extreme heat (hot tubs, saunas). This medicine can cause you to sweat less than normal. Your body temperature could increase to dangerous levels, which may lead to heat stroke. Antacids can stop this medicine from working. If you get an upset stomach and want to take an antacid, make sure there is an interval of at least 1 to 2 hours before or after you take this medicine. Your mouth may get dry. Chewing sugarless gum or sucking hard candy, and drinking plenty of water may help. Contact your doctor if the problem does not go away or is severe. Ondansetron Oral disintegrating tablet What is this medicine? ONDANSETRON (on YASMINE se anastacio) is used to treat nausea and vomiting caused by chemotherapy. It is also used to prevent or treat nausea and vomiting after surgery. How should I use this medicine? These tablets are made to dissolve in the mouth. Do not try to push the tablet through the foil backing. With dry hands, peel away the foil backing and gently remove the tablet. Place the tablet in the mouth and allow it to dissolve, then swallow. While you may take these tablets with water, it is not necessary to do so. Talk to your shorts sifter regarding the use of this medicine in children. Special care may be needed. What side effects may I notice from receiving this medicine? Side effects that you should report to your doctor or health manager career as soon as possible: allergic reactions like skin rash, itching or hives, swelling of the face, lips, or tongue breathing problems dizziness fast or irregular heartbeat feeling faint or lightheaded, falls fever and chills swelling of the hands and feet tightness in the chest Side effects that usually do not require medical attention (report to your doctor or health manager career if they continue or are bothersome): constipation or diarrhea headache What may interact with this medicine? Do not take this medicine with any of the following medications: -apomorphine -cisapride -dofetilide -dronedarone -pimozide -thioridazine -ziprasidone This medicine may also interact with the following medications: -carbamazepine -phenytoin -rifampicin -tramadol -other medicines that prolong the QT interval (cause an abnormal heart rhythm) What if I miss a dose? If you miss a dose, take it as soon as you can. If it is almost time for your next dose, take only that dose. Do not take double or extra doses. Where should I keep my medicine? Keep out of the reach of children. Store between 2 and 30 degrees C (36 and 86 degrees F). Throw away any unused medicine after the expiration date. What should I tell my health care provider before I take this medicine? They need to know if you have any of these conditions: heart disease history of irregular heartbeat liver disease low levels of magnesium or potassium in the blood an unusual or allergic reaction to ondansetron, granisetron, other medicines, foods, dyes, or preservatives or trying to get breast-feeding What should I watch for while using this medicine? Check with your doctor or health manager career as soon as you can if you have any sign of an allergic reaction. You have been given the following additional information: Gastroenteritis, Viral (6Y-Adult) Dicyclomine Hydrochloride Oral tablet Ondansetron Oral disintegrating tablet (Electronically signed by Dilip Short Dr. 01/06/2017 14:43)
--- NOTE | 2017-01-06 16:08 | ED MED RECONCILIATION SUMMARY ---
Patient: LEÓN ROSENTHAL Medication Reconciliation Report [facility] VisitID: [id number] [place] [address] 51y, F Registration Date/Time: 01/06/2017 Weight: 74.8 kg Height/Length: 62 in. BMI: 30.2 ALLERGIES: No Known Drug Allergy The patient's Home Medications are listed below: CONTINUE TAKING THE FOLLOWING MEDICATIONS: CeleXA Oral (40 mg), daily LORazepam Oral (1 mg), PRN PriLOSEC Oral (40 mg), daily Synthroid Oral (200 mcg) 1 tablet, daily The source(s) of the original Home Medication information: Not obtained. The following Medications were given to the patient in the Emergency Department: IV NS IV Fluids bolus 1000 mL over 1 hour(s), administered: 01/06/2017 12:13:00 PM Zofran [IVP] IVP 4 mg, administered: 01/06/2017 12:13:00 PM Famotidine [IVP] IVP 20 mg, administered: 01/06/2017 12:16:00 PM Bentyl [PO] PO 20 mg, administered: 01/06/2017 2:29:00 PM Tylenol [PO] PO 1000 mg, administered: 01/06/2017 2:29:00 PM The following Medications were prescribed to the patient: Bentyl 20 mg tablets: take 1 orally every 6 hours as needed for abdominal cramps or abdominal discomfort. Dispense thirty (30). No refill. Substitution is permissible. -- Dilip Short Dr. Zofran ODT 4 mg: take 1 orally every 6 hours as needed for nausea and vomiting. Dispense ten (10). No refill. Substitution is permissible. -- Dilip Short Dr.
--- NOTE | 2017-01-06 16:08 | ED MAR SUMMARY ---
..... Medication Administration Record [facility] [address] [place] [address] Patient: ZOIE ROSENTHAL Visit ID: [id number] 51y, F Weight: 74.8 kg Height/Length: 62 in BMI: 30.2 ALLERGIES: No Known Drug Allergy Start 12:13 01/06/2017 Zoie Castillo R.N., Stop 13:46 01/06/2017 Zoie Castillo R.N. Medication Administered: IV NS (SALINE), Dose: IV Fluids, Bolus: 1000 mL over 1 hour(s), Dispensed: 1000 mL bag, Site: #1 left hand. Medication Ordered: IV NS : initial bolus 1000 mL (1000 mL/hr), then 1000 mL/hr for X1 (NOW). Given 12:13 01/06/2017 Zoie Castillo R.N. Medication Administered: ZOFRAN [IVP] (ONDANSETRON HCL), Dose: 4 mg IVP over 2 minute(s), Site: #1 left hand. Medication Ordered: Zofran IV 4 mg (NOW). Given 12:16 01/06/2017 Zoie Castillo R.N. Medication Administered: FAMOTIDINE [IVP], Dose: 20 mg IVP over 30 minute(s), Site: #1 left hand. Medication Ordered: Famotidine IV 20 mg/50mL (NOW). Given 14:01/06/2017 Zoie Castillo R.N. Medication Administered: BENTYL [PO] (DICYCLOMINE HCL), Dose: 20 mg PO. Medication Ordered: Bentyl PO 20 mg (NOW). Given 14:01/06/2017 Zoie Castillo R.N. Medication Administered: TYLENOL [PO] (ACETAMINOPHEN), Dose: 1000 mg Tablets PO. Medication Ordered: Tylenol PO 1,000 mg (NOW).
--- NOTE | 2017-01-06 16:08 | ED DISCHARGE INSTRUCTIONS ---
Patient: LEÓN ROSENTHAL General Instructions [facility] VisitID: [id number] [address] [place] [address] 51y, F Registration Date/Time: 01/06/2017 Acute viral gastroenteritis. Mild leukocytosis. INSTRUCTIONS Drink plenty of fluids. Your Current Medications: CONTINUE TAKING THE FOLLOWING MEDICATIONS: CeleXA Oral : Tablet 40 mg, daily. LORazepam Oral : Tablet 1 mg, PRN. PriLOSEC Oral : Capsule Delayed Release 40 mg, daily. Synthroid Oral : Tablet 200 mcg, 1 tablet daily. Prescription Medications: Bentyl 20 mg tablets: take 1 orally every 6 hours as needed for abdominal cramps or abdominal discomfort. Dispense thirty (30). No refill. Substitution is permissible. Zofran ODT 4 mg: take 1 orally every 6 hours as needed for nausea and vomiting. Dispense ten (10). No refill. Substitution is permissible. Follow-up with: [facility], , , [address], [place] [address]; [facility], , [address] [place] [address], [address], [place] [address] Follow up in about four days. Call for an appointment. ADDITIONAL INFORMATION Viral Gastroenteritis (6Yr-Adult) Gastroenteritis is another name for thestomach flu.It is most often caused by a virus that affects the stomach and intestinal tract. Symptoms include stomach cramping and fever, vomiting and/or diarrhea, and can last from 2 to 7 days. The danger from repeated vomiting or diarrhea is dehydration. This is the loss of too much water and minerals from the body. When this occurs, body fluids must be replaced. Antibiotics are not effective for this illness, but simple home treatment will be helpful. Home Care If symptoms are severe, rest at home for the next 24 hours. Avoid tobacco, caffeine, and alcohol use, which can worsen symptoms. Acetaminophen (Tylenol) or ibuprofen (Motrin, Advil) may be usedfor fever or pain unless another medication was prescribed. NOTE: If you have chronic liver or kidney disease or ever had a stomach ulcer or GI bleeding, talk with your doctor before using these medicines. Aspirin should never be used in anyone under 18 years of age who is ill with a fever. It may cause severe liver damage. If medicines for diarrhea or vomiting were prescribed, be sure they are takenonly as directed. If vomiting, drink small amounts of clear fluids (such as water, sports drinks, clear sodas) at frequent intervals to prevent dehydration. Start with 1 to 2 tablespoons every 10 minutes. Once vomiting stops, follow these guidelines: During The First 12 To 24 Hours follow the diet below: Beverages: Sport drinks like Gatorade, soft drinks without caffeine; jj rajinder, mineral water (plain or flavored), decaffeinated tea and coffee. Soups: Clear broth, consomm and bouillon Desserts: Plain gelatin (Jell-O), Popsicles and fruit juice bars. During The Next 24 Hours you may add the following to the above: Hot cereal, plain toast, bread, rolls, crackers Plain noodles, rice, mashed potatoes, chicken noodle or rice soup Unsweetened canned fruit (avoid pineapple), bananas Limit fat intake to less than 15 grams per day by avoiding margarine, butter, oils, mayonnaise, sauces, gravies, fried foods, peanut butter, meat, poultry, and fish. Limit fiber; avoid raw or cooked vegetables, fresh fruits (except bananas), and bran cereals. Limit caffeine and chocolate. Do not use spices or seasonings except salt. During The Next 24 Hours The patient can gradually resume a normal diet as symptoms lessen. Preventing Spread Hand washing with soap and water is the best way to prevent the spread of viruses. Caregivers should wash their hands before andafter touching the sick person. The sick person, as well as everyone in the family,should wash their hands after using the toilet and before meals. Clean the toilet after each use. People with diarrhea should not prepare food for others. If you are preparing your own foods, wash your hands before and after. Follow Up with your doctor as advised. Call your doctor if you are not improving over the next 2 to 3 days. If a stool (diarrhea) sample was taken, you may call in 2 days (or as directed) for the results. Get Prompt Medical Attention if any of the following occur: Increasing abdominal pain Continued vomiting (unable to keep liquids down) Frequent diarrhea (more than 5 times a day) Blood in vomit or stool (black or red color) Dark urine, reduced urine output, or extreme thirst Weakness, dizziness, fainting Drowsiness, confusion, stiff neck, or seizure Fever of 100.4F (38C) oral or higher, not better with fever medication New rash Dicyclomine Hydrochloride Oral tablet What is this medicine? DICYCLOMINE (dye SYE sondra meen) is used to treat bowel problems including irritable bowel syndrome. How should I use this medicine? Take this medicine by mouth with a glass of water. Follow the directions on the prescription label. It is best to take this medicine on an empty stomach, 30 minutes to 1 hour before meals. Take your medicine at regular intervals. Do not take your medicine more often than directed. Talk to your creative writing teacher regarding the use of this medicine in children. Special care may be needed. While this drug may be prescribed for children as young as 6 months of age for selected conditions, precautions do apply. Patients over 65 years old may have a stronger reaction and need a smaller dose. What side effects may I notice from receiving this medicine? Side effects that you should report to your doctor or health health care specialist as soon as possible: agitation, nervousness, confusion difficulty swallowing dizziness, drowsiness fast or slow heartbeat hallucinations pain or difficulty passing urine Side effects that usually do not require medical attention (report to your doctor or health health care specialist if they continue or are bothersome): constipation headache nausea or vomiting sexual difficulty What may interact with this medicine? amantadine antacids benztropine digoxin disopyramide medicines for allergies, colds and breathing difficulties medicines for alzheimer's disease medicines for anxiety or sleeping problems medicines for depression or psychotic disturbances medicines for diarrhea medicines for pain metoclopramide tegaserod What if I miss a dose? If you miss a dose, take it as soon as you can. If it is almost time for your next dose, take only that dose. Do not take double or extra doses. Where should I keep my medicine? Keep out of the reach of children. Store at room temperature below 30 degrees C (86 degrees F). Protect from light. Throw away any unused medicine after the expiration date. What should I tell my health care provider before I take this medicine? They need to know if you have any of these conditions: difficulty passing urine esophagus problems or heartburn glaucoma heart disease, or previous heart attack myasthenia gravis prostate trouble stomach infection, or obstruction ulcerative colitis an unusual or allergic reaction to dicyclomine, other medicines, foods, dyes, or preservatives or trying to get breast-feeding What should I watch for while using this medicine? You may get drowsy, dizzy, or have blurred vision. Do not drive, use machinery, or do anything that needs mental alertness until you know how this medicine affects you. To reduce the risk of dizzy or fainting spells, do not sit or stand up quickly, especially if you are an older patient. Alcohol can make you more drowsy, avoid alcoholic drinks. Stay out of bright light and wear sunglasses if this medicine makes your eyes more sensitive to light. Avoid extreme heat (hot tubs, saunas). This medicine can cause you to sweat less than normal. Your body temperature could increase to dangerous levels, which may lead to heat stroke. Antacids can stop this medicine from working. If you get an upset stomach and want to take an antacid, make sure there is an interval of at least 1 to 2 hours before or after you take this medicine. Your mouth may get dry. Chewing sugarless gum or sucking hard candy, and drinking plenty of water may help. Contact your doctor if the problem does not go away or is severe. Ondansetron Oral disintegrating tablet What is this medicine? ONDANSETRON (on YASMINE se anastacio) is used to treat nausea and vomiting caused by chemotherapy. It is also used to prevent or treat nausea and vomiting after surgery. How should I use this medicine? These tablets are made to dissolve in the mouth. Do not try to push the tablet through the foil backing. With dry hands, peel away the foil backing and gently remove the tablet. Place the tablet in the mouth and allow it to dissolve, then swallow. While you may take these tablets with water, it is not necessary to do so. Talk to your creative writing teacher regarding the use of this medicine in children. Special care may be needed. What side effects may I notice from receiving this medicine? Side effects that you should report to your doctor or health health care specialist as soon as possible: allergic reactions like skin rash, itching or hives, swelling of the face, lips, or tongue breathing problems dizziness fast or irregular heartbeat feeling faint or lightheaded, falls fever and chills swelling of the hands and feet tightness in the chest Side effects that usually do not require medical attention (report to your doctor or health health care specialist if they continue or are bothersome): constipation or diarrhea headache What may interact with this medicine? Do not take this medicine with any of the following medications: -apomorphine -cisapride -dofetilide -dronedarone -pimozide -thioridazine -ziprasidone This medicine may also interact with the following medications: -carbamazepine -phenytoin -rifampicin -tramadol -other medicines that prolong the QT interval (cause an abnormal heart rhythm) What if I miss a dose? If you miss a dose, take it as soon as you can. If it is almost time for your next dose, take only that dose. Do not take double or extra doses. Where should I keep my medicine? Keep out of the reach of children. Store between 2 and 30 degrees C (36 and 86 degrees F). Throw away any unused medicine after the expiration date. What should I tell my health care provider before I take this medicine? They need to know if you have any of these conditions: heart disease history of irregular heartbeat liver disease low levels of magnesium or potassium in the blood an unusual or allergic reaction to ondansetron, granisetron, other medicines, foods, dyes, or preservatives or trying to get breast-feeding What should I watch for while using this medicine? Check with your doctor or health health care specialist as soon as you can if you have any sign of an allergic reaction. You have been given the following additional information: Gastroenteritis, Viral (6Y-Adult) Dicyclomine Hydrochloride Oral tablet Ondansetron Oral disintegrating tablet (Electronically signed by Dilip Short Dr. 01/06/2017 14:43)
--- NOTE | 2017-01-06 16:08 | ED MAR SUMMARY ---
..... Medication Administration Record [facility] [address] [place] [address] Patient: ZOIE ROSENTHAL Visit ID: [id number] 51y, F Weight: 74.8 kg Height/Length: 62 in BMI: 30.2 ALLERGIES: No Known Drug Allergy Start 12:13 01/06/2017 Zoie Castillo R.N., Stop 13:46 01/06/2017 Zoie Castillo R.N. Medication Administered: IV NS (SALINE), Dose: IV Fluids, Bolus: 1000 mL over 1 hour(s), Dispensed: 1000 mL bag, Site: #1 left hand. Medication Ordered: IV NS : initial bolus 1000 mL (1000 mL/hr), then 1000 mL/hr for X1 (NOW). Given 12:13 01/06/2017 Zoie Castillo R.N. Medication Administered: ZOFRAN [IVP] (ONDANSETRON HCL), Dose: 4 mg IVP over 2 minute(s), Site: #1 left hand. Medication Ordered: Zofran IV 4 mg (NOW). Given 12:16 01/06/2017 Zoie Castillo R.N. Medication Administered: FAMOTIDINE [IVP], Dose: 20 mg IVP over 30 minute(s), Site: #1 left hand. Medication Ordered: Famotidine IV 20 mg/50mL (NOW). Given 14:01/06/2017 Zoie Castillo R.N. Medication Administered: BENTYL [PO] (DICYCLOMINE HCL), Dose: 20 mg PO. Medication Ordered: Bentyl PO 20 mg (NOW). Given 14:01/06/2017 Zoie Castillo R.N. Medication Administered: TYLENOL [PO] (ACETAMINOPHEN), Dose: 1000 mg Tablets PO. Medication Ordered: Tylenol PO 1,000 mg (NOW).
--- NOTE | 2017-01-06 16:08 | ED MED RECONCILIATION SUMMARY ---
Patient: LEÓN ROSENTHAL Medication Reconciliation Report [facility] VisitID: [id number] [address] [place] [address] 51y, F Registration Date/Time: 01/06/2017 Weight: 74.8 kg Height/Length: 62 in. BMI: 30.2 ALLERGIES: No Known Drug Allergy The patient's Home Medications are listed below: CONTINUE TAKING THE FOLLOWING MEDICATIONS: CeleXA Oral (40 mg), daily LORazepam Oral (1 mg), PRN PriLOSEC Oral (40 mg), daily Synthroid Oral (200 mcg) 1 tablet, daily The source(s) of the original Home Medication information: Not obtained. The following Medications were given to the patient in the Emergency Department: IV NS IV Fluids bolus 1000 mL over 1 hour(s), administered: 01/06/2017 12:13:00 PM Zofran [IVP] IVP 4 mg, administered: 01/06/2017 12:13:00 PM Famotidine [IVP] IVP 20 mg, administered: 01/06/2017 12:16:00 PM Bentyl [PO] PO 20 mg, administered: 01/06/2017 2:29:00 PM Tylenol [PO] PO 1000 mg, administered: 01/06/2017 2:29:00 PM The following Medications were prescribed to the patient: Bentyl 20 mg tablets: take 1 orally every 6 hours as needed for abdominal cramps or abdominal discomfort. Dispense thirty (30). No refill. Substitution is permissible. -- Dilip Short Dr. Zofran ODT 4 mg: take 1 orally every 6 hours as needed for nausea and vomiting. Dispense ten (10). No refill. Substitution is permissible. -- Dilip Short Dr.
== END 2017-01-06 14:51 | disposition home or self-care (01) ==
LOC: ED SRH 11:36
DX: A08.4 Viral intestinal infection, unspecified (principal); D72.829 Elevated white blood cell count, unspecified; E05.00 Thyrotoxicosis with diffuse goiter without thyrotoxic crisis or storm; F17.200 Nicotine dependence, unspecified, uncomplicated
CPT/HCPCS: 90004; 90100; 92235; 92530; 95059